=== PATIENT | male | born 1950 | race African-American/Black ===

== ENCOUNTER 2019-06-15 06:35 | Inpatient (IN) | payer MEDICARE, OTHER ==
[~2019-06-15] VITALS: Ht 170.2 cm; Wt 71.7 kg
[2019-06-15 07:15] LABS: BASOPHILS % 0.6 % (0.0-2.0); EOSINOPHILS % 0.5 % (0.0-5.0); HEMATOCRIT. 41.1 % (42.0-52.0); HEMOGLOBIN. 14.4 g/dL (14.0-18.0); LYMPHOCYTES % 22.2 % (20.0-50.0); MEAN CORPUSCULAR HEMOGLOBIN 28.5 pg (28.0-32.0); MEAN CORPUSCULAR VOLUME 81.4 fL (80.0-94.0); MEAN PLATELET VOLUME 11.4 fl (7.4-10.4); MONOCYTES % 11.9 % (2.0-8.0); NEUTROPHILS % 64.8 % (40.0-76.0); PLATELET 173 x1000/uL (130-400); RED BLOOD CELL COUNT 5.05 mill/uL (4.7-6.1); RED CELL DISTRIBUTION WIDTH 14.4 % (11.6-14.6)
[2019-06-15 07:22] LABS: CLARITY URINE CLEAR (CLEAR); COLOR URINE YELLOW (YELLOW); KETONES URINE NEGATIVE (NEGATIVE); LEUKOCYTE ESTERASE URINE NEGATIVE (NEGATIVE); NITRITE URINE NEGATIVE (NEGATIVE); OCCULT BLOOD URINE NEGATIVE (NEGATIVE); PH URINE 5.5 (4.5-8.0); PROTEIN URINE 1+ (NEGATIVE); SPECIFIC GRAVITY URINE 1.019 (1.005-1.030)
[2019-06-15 07:22] LABS: CHLORIDE 108 mEq/L (98-107)
[2019-06-15 07:26] LABS: ETHANOL BLOOD < 10 mg/dL
[2019-06-15 07:37] LABS: PROTHROMBIN TIME 11.1 sec (9.6-11.0)
[2019-06-15 07:39] LABS: *AMPHETAMINES SCREEN URINE NEGATIVE (NEGATIVE); *BARBITURATES SCREEN URINE NEGATIVE (NEGATIVE); *BENZODIAZEPINES SCREEN URINE NEGATIVE (NEGATIVE)
[2019-06-15 07:40] LABS: *COCAINE SCREEN URINE PRESUMTIVE POSITIVE (NEGATIVE); CANNABINOID URINE SCREEN NEGATIVE (NEGATIVE); METHADONE URINE SCREEN NEGATIVE (NEGATIVE); OPIATES URINE SCREEN NEGATIVE (NEGATIVE); PHENCYCLIDINE URINE SCREEN NEGATIVE (NEGATIVE)
[2019-06-15] MEDS ORDERED: CEFTRIAXONE 1 G PREMIX 50 ML IV ONE (08:45)
[2019-06-15] MEDS ORDERED: ASPIRIN 300MG SUPP PR ONE (08:45)
[2019-06-15] MEDS ORDERED: AZITHROMYCIN 500 MG in DEXT 5% WATER 250 ML IV ONE (08:45)
[2019-06-15 10:35] LABS: BG BASE EXCESS -2.1 mmol/L (-2.0-2.0); BG CARBOXYHEMOGLOBIN 1.2 % (0.5-1.5); BG DEOXYHEMOGLOBIN 3.1 % (0.0-5.0); BG FRACTION INSPIRED OXYGEN 28; BG HCO3 ACT 21.9 mmol/L (22.0-26.0); BG METHEMOGLOBIN 0.2 % (0.0-1.5); BG OXYGEN SATURATION 96.9 % (92.0-98.5); BG OXYHEMOGLOBIN 95.5 % (94.0-97.0); BG PCO2 35.3 mmHg (35.0-45.0); BG PO2 95.7 mmHg (75.0-100.0); BG SAMPLE SITE RIGHT RADIAL; BG TOTAL HEMOGLOBIN 14.7 g/dL (12.0-18.0); BG VENT MODE NASAL CANNULA
[2019-06-15] MEDS ORDERED: LORAZEPAM 2MG/ML CPJ IV ONE (10:45)
[2019-06-15 11:20] VITALS: BP 166/107
[2019-06-15 11:25] VITALS: BP 166/107
[2019-06-15] MEDS ORDERED: GUAIFENESIN 200MG/10ML SUGAR FREE UDC PO PRN (12:00)
[2019-06-15] MEDS ORDERED: KETOROLAC 30MG/ML VIAL IV PRN (12:00)
[2019-06-15] MEDS ORDERED: NITROGLYCERIN 0.4MG TABLET SL SL PRN (12:00)
[2019-06-15] MEDS ORDERED: IPRATROPIUM/ALBUTEROL 0.5-3(2.5)MG/3ML NEB NEB PRN (12:00)
[2019-06-15] MEDS ORDERED: ACETAMINOPHEN 325MG TABLET PO PRN (12:00)
[2019-06-15] MEDS ORDERED: MAGNESIUM/ALUMINUM HYDROXIDE/SIMETHICONE 30ML UDC PO PRN (12:00)
[2019-06-15] MEDS ORDERED: ONDANSETRON HCL 4MG/2ML INJ IV PRN (12:00)
[2019-06-15] MEDS ORDERED: DOCUSATE SODIUM 100MG CAPSULE PO PRN (12:00)
[2019-06-15] MEDS ORDERED: KETOROLAC 15MG/ML VIAL IV PRN (12:15)
[2019-06-15] MEDS ORDERED: KCL 20MEQ/100ML PREMIX 100 ML IV SCH (13:00)
[2019-06-15] MEDS ORDERED: AZITHROMYCIN 500 MG in DEXT 5% WATER 250 ML IV SCH (13:15)
[2019-06-15 13:30] VITALS: BP 159/109
[2019-06-15] MEDS: ENOXAPARIN 40MG/0.4ML SYR SUBCUT SCH (15:50)
[2019-06-15 16:00] VITALS: BP 179/122
[2019-06-15 16:09] LABS: CREATINE KINASE MB FRACTION 2.6 ng/mL (0.5-3.6)
[2019-06-15] MEDS: HYDRALAZINE 20MG/ML VIAL IV PRN (17:44)
[2019-06-15 20:21] VITALS: BP 169/108
[2019-06-15] MEDS: FAMOTIDINE 20MG TABLET PO SCH (21:00)
[2019-06-15 23:42] LABS: CREATINE KINASE MB FRACTION 1.8 ng/mL (0.5-3.6)
[2019-06-16 00:23] VITALS: BP 160/101
[2019-06-16 01:00] VITALS: BP 194/129
[2019-06-16] MEDS: HYDRALAZINE 20MG/ML VIAL IV PRN (01:56)
[2019-06-16 04:00] VITALS: BP 179/116
[2019-06-16 07:17] LABS: BASOPHILS % 0.6 % (0.0-2.0); EOSINOPHILS % 0.1 % (0.0-5.0); MEAN CORPUSCULAR HEMOGLOBIN 28.1 pg (28.0-32.0); MEAN CORPUSCULAR VOLUME 80.5 fL (80.0-94.0); MONOCYTES % 11.1 % (2.0-8.0); NEUTROPHILS % 63.2 % (40.0-76.0); RED BLOOD CELL COUNT 5.34 mill/uL (4.7-6.1); RED CELL DISTRIBUTION WIDTH 15.1 % (11.6-14.6)
[2019-06-16 07:50] LABS: CHLORIDE 109 mEq/L (98-107)
[2019-06-16 08:00] VITALS: BP 184/111
[2019-06-16 08:01] LABS: PHOSPHORUS 3.8 mg/dL (2.5-4.9)
[2019-06-16] MEDS ORDERED: ASPIRIN 325MG EC TABLET PO SCH (09:00)
[2019-06-16] MEDS: AZITHROMYCIN 500 MG TABLET PO SCH (09:00)
[2019-06-16] MEDS: FAMOTIDINE 20MG TABLET PO SCH (09:00)
[2019-06-16 11:41] LABS: PLATELET 192 x1000/uL (130-400)
[2019-06-16 12:00] VITALS: BP 185/114
[2019-06-16] MEDS: ENOXAPARIN 40MG/0.4ML SYR SUBCUT SCH (12:28)
[2019-06-16] MEDS: CLOPIDOGREL 75MG TABLET PO SCH (12:45)
[2019-06-16] MEDS: NITROGLYCERIN OINT 1GM/INCH UDPKT TD SCH (14:00)
[2019-06-16 16:00] VITALS: BP 186/116
[2019-06-16] MEDS: CEFTRIAXONE 1 G PREMIX 50 ML IV SCH (16:57)
[2019-06-17] VITALS: BP 168/106
[2019-06-17] MEDS: CLONIDINE 0.1MG TABLET PO PRN ×2 (04:58→21:22)
[2019-06-17] MEDS: NITROGLYCERIN OINT 1GM/INCH UDPKT TD SCH ×4 (07:06→21:23)
[2019-06-17 07:47] VITALS: BP 180/131
[2019-06-17] MEDS: CEFTRIAXONE 1 G PREMIX 50 ML IV SCH ×2 (09:00→14:15)
[2019-06-17 09:44] VITALS: BP 178/112
[2019-06-17] MEDS: CLOPIDOGREL 75MG TABLET PO SCH (09:46)
[2019-06-17] MEDS: AMLODIPINE 10MG TABLET NG SCH (09:46)
[2019-06-17] MEDS: FAMOTIDINE 20MG TABLET PO SCH ×2 (09:48→21:22)
[2019-06-17] MEDS: AZITHROMYCIN 500 MG TABLET PO SCH (09:53)
[2019-06-17 11:48] VITALS: BP 153/109
[2019-06-17] MEDS: ENOXAPARIN 40MG/0.4ML SYR SUBCUT SCH (13:45)
[2019-06-17 15:43] VITALS: BP 160/106
[2019-06-17 20:00] VITALS: BP 163/117
[2019-06-18] VITALS: BP 128/82
[2019-06-18 08:14] VITALS: BP 167/125
[2019-06-18] MEDS: FAMOTIDINE 20MG TABLET PO SCH ×2 (09:27→22:20)
[2019-06-18] MEDS: LISINOPRIL 20MG TABLET PO SCH ×2 (09:28→22:19)
[2019-06-18] MEDS: AZITHROMYCIN 500 MG TABLET PO SCH (09:28)
[2019-06-18] MEDS: AMLODIPINE 10MG TABLET NG SCH (09:28)
[2019-06-18] MEDS: CLOPIDOGREL 75MG TABLET PO SCH (09:28)
[2019-06-18] MEDS: CEFTRIAXONE 1 G PREMIX 50 ML IV SCH (09:29)
[2019-06-18] MEDS: ENOXAPARIN 40MG/0.4ML SYR SUBCUT SCH (12:00)
[2019-06-18 12:06] VITALS: BP 163/116
[2019-06-18] MEDS: NITROGLYCERIN OINT 1GM/INCH UDPKT TD SCH ×2 (14:00→22:20)
[2019-06-18 16:00] VITALS: BP 142/71
[2019-06-18 16:07] VITALS: BP 145/95
[2019-06-18 20:00] VITALS: BP 166/103
[2019-06-18] MEDS: HYDRALAZINE HCL 50MG TABLET PO SCH (22:19)
[2019-06-19] VITALS: BP 160/101
[2019-06-19 04:00] VITALS: BP 167/103
[2019-06-19] MEDS: CLONIDINE 0.1MG TABLET PO PRN ×2 (06:21→15:53)
[2019-06-19] MEDS: HYDRALAZINE HCL 50MG TABLET PO SCH ×3 (06:22→22:21)
[2019-06-19] MEDS: NITROGLYCERIN OINT 1GM/INCH UDPKT TD SCH ×3 (06:22→22:21)
[2019-06-19 08:00] VITALS: BP 154/87
[2019-06-19] MEDS: LISINOPRIL 20MG TABLET PO SCH ×2 (11:01→22:21)
[2019-06-19] MEDS: CLOPIDOGREL 75MG TABLET PO SCH (11:01)
[2019-06-19] MEDS: FAMOTIDINE 20MG TABLET PO SCH ×2 (11:02→22:21)
[2019-06-19] MEDS: ENOXAPARIN 40MG/0.4ML SYR SUBCUT SCH (11:02)
[2019-06-19] MEDS: AMLODIPINE 10MG TABLET NG SCH (11:02)
[2019-06-19] MEDS: CEFTRIAXONE 1 G PREMIX 50 ML IV SCH (11:02)
[2019-06-19] MEDS: AZITHROMYCIN 500 MG TABLET PO SCH (11:02)
[2019-06-19 12:00] VITALS: BP 151/99
[2019-06-19 16:00] VITALS: BP 120/80
[2019-06-19 20:00] VITALS: BP 167/104
[2019-06-20] VITALS: BP 148/97
[2019-06-20 04:00] VITALS: BP 148/97
[2019-06-20] MEDS: NITROGLYCERIN OINT 1GM/INCH UDPKT TD SCH ×3 (05:37→22:32)
[2019-06-20] MEDS: HYDRALAZINE HCL 50MG TABLET PO SCH ×3 (05:37→22:32)
[2019-06-20 08:00] VITALS: BP 137/88
[2019-06-20] MEDS: AMLODIPINE 10MG TABLET NG SCH (10:15)
[2019-06-20] MEDS: LISINOPRIL 20MG TABLET PO SCH ×2 (10:15→22:31)
[2019-06-20] MEDS: FAMOTIDINE 20MG TABLET PO SCH ×2 (10:15→21:00)
[2019-06-20 12:00] VITALS: BP 130/85
[2019-06-20 16:00] VITALS: BP 149/89
[2019-06-20 20:00] VITALS: BP 130/81
[2019-06-20] MEDS: ACETAMINOPHEN 325MG TABLET PO PRN (22:32)
[2019-06-21] VITALS: BP 139/81
[2019-06-21 04:00] VITALS: BP 159/100
[2019-06-21 06:22] LABS: PROTHROMBIN TIME 11.1 sec (9.6-11.0)
[2019-06-21] MEDS: NITROGLYCERIN OINT 1GM/INCH UDPKT TD SCH ×3 (06:43→22:37)
[2019-06-21] MEDS: HYDRALAZINE HCL 50MG TABLET PO SCH ×3 (06:43→22:38)
[2019-06-21 08:00] VITALS: BP 150/94
[2019-06-21] MEDS: LISINOPRIL 20MG TABLET PO SCH ×3 (08:32→22:38)
[2019-06-21] MEDS: AMLODIPINE 10MG TABLET NG SCH ×2 (08:32→08:58)
[2019-06-21] MEDS: FAMOTIDINE 20MG TABLET PO SCH ×2 (08:32→22:38)
[2019-06-21] MEDS ORDERED: CEFAZOLIN 1000MG PREMIX 50 ML IV SCH (09:00)
[2019-06-21] MEDS ORDERED: FENTANYL CITRATE/PF 50MCG/ML 2ML VIAL ONE (11:27)
[2019-06-21] MEDS ORDERED: FENTANYL CITRATE/PF 50MCG/ML 2ML VIAL IV PRN (11:27)
[2019-06-21] MEDS ORDERED: MIDAZOLAM HCL 5 MG/5 ML VIAL IV PRN (11:27)
[2019-06-21] MEDS ORDERED: MIDAZOLAM HCL 5 MG/5 ML VIAL ONE (11:27)
[2019-06-21 13:00] VITALS: BP 144/65
[2019-06-21] MEDS: FOLIC ACID 1MG TABLET PO SCH (14:06)
[2019-06-21] MEDS: THIAMINE HCL 100MG TABLET PO SCH (14:07)
[2019-06-21 16:00] VITALS: BP 142/85
[2019-06-21 20:00] VITALS: BP 120/76
[2019-06-21] MEDS: ACETAMINOPHEN 325MG TABLET PO PRN (22:37)
[2019-06-22] VITALS: BP 138/77
[2019-06-22 04:00] VITALS: BP 163/100
[2019-06-22] MEDS: HYDRALAZINE HCL 50MG TABLET PO SCH ×3 (05:14→20:20)
[2019-06-22] MEDS: NITROGLYCERIN OINT 1GM/INCH UDPKT TD SCH ×3 (05:15→20:21)
[2019-06-22] MEDS: ACETAMINOPHEN 325MG TABLET PO PRN (05:15)
[2019-06-22 09:33] LABS: BASOPHILS % 0.4 % (0.0-2.0); EOSINOPHILS % 0.3 % (0.0-5.0); HEMATOCRIT. 40.2 % (42.0-52.0); HEMOGLOBIN. 13.7 g/dL (14.0-18.0); LYMPHOCYTES % 13.3 % (20.0-50.0); MEAN CORPUSCULAR HEMOGLOBIN 27.8 pg (28.0-32.0); MEAN CORPUSCULAR VOLUME 81.5 fL (80.0-94.0); MEAN PLATELET VOLUME 10.9 fl (7.4-10.4); MONOCYTES % 10.3 % (2.0-8.0); NEUTROPHILS % 75.7 % (40.0-76.0); PLATELET 181 x1000/uL (130-400); RED BLOOD CELL COUNT 4.93 mill/uL (4.7-6.1)
[2019-06-22] MEDS: FAMOTIDINE 20MG TABLET PO SCH ×2 (09:33→20:20)
[2019-06-22] MEDS: THIAMINE HCL 100MG TABLET PO SCH (09:34)
[2019-06-22] MEDS: LISINOPRIL 20MG TABLET PO SCH ×2 (09:34→20:21)
[2019-06-22] MEDS: AMLODIPINE 10MG TABLET NG SCH (09:38)
[2019-06-22] MEDS: FOLIC ACID 1MG TABLET PO SCH (09:38)
[2019-06-22 09:49] LABS: CHLORIDE 116 mEq/L (98-107)
[2019-06-22] MEDS: LABETALOL HCL 200MG TABLET PO SCH ×2 (10:06→20:21)
[2019-06-22 12:14] VITALS: BP 154/97
[2019-06-22] MEDS: HYDRALAZINE 20MG/ML VIAL IV PRN (13:09)
[2019-06-22 16:05] VITALS: BP 103/77
[2019-06-22 20:00] VITALS: BP 158/90
[2019-06-23] VITALS (7 sets, daily range): BP systolic 144–155; BP diastolic 81–98
[2019-06-23] MEDS: NITROGLYCERIN OINT 1GM/INCH UDPKT TD SCH ×3 (05:15→21:14)
[2019-06-23] MEDS: HYDRALAZINE HCL 50MG TABLET PO SCH ×3 (05:15→21:13)
[2019-06-23] MEDS: LABETALOL HCL 200MG TABLET PO SCH ×2 (09:48→21:14)
[2019-06-23] MEDS: LISINOPRIL 20MG TABLET PO SCH ×2 (09:49→21:12)
[2019-06-23] MEDS: FOLIC ACID 1MG TABLET PO SCH (09:49)
[2019-06-23] MEDS: AMLODIPINE 10MG TABLET NG SCH (09:49)
[2019-06-23] MEDS: FAMOTIDINE 20MG TABLET PO SCH ×2 (09:49→21:13)
[2019-06-23] MEDS: THIAMINE HCL 100MG TABLET PO SCH (09:49)
[2019-06-23] MEDS ORDERED: CARVEDILOL 6.25 MG TABLET GT SCH (11:30)
[2019-06-23] MEDS: CARVEDILOL 6.25 MG TABLET GT SCH (21:13)
[2019-06-24] VITALS: BP 143/80
[2019-06-24 04:00] VITALS: BP 140/70
[2019-06-24 05:48] LABS: BASOPHILS % 0.7 % (0.0-2.0); EOSINOPHILS % 2.1 % (0.0-5.0); HEMATOCRIT. 39.6 % (42.0-52.0); HEMOGLOBIN. 13.3 g/dL (14.0-18.0); LYMPHOCYTES % 24.6 % (20.0-50.0); MEAN CORPUSCULAR HEMOGLOBIN 27.7 pg (28.0-32.0); MEAN CORPUSCULAR VOLUME 82.7 fL (80.0-94.0); MONOCYTES % 13.4 % (2.0-8.0); NEUTROPHILS % 59.2 % (40.0-76.0); RED BLOOD CELL COUNT 4.79 mill/uL (4.7-6.1); RED CELL DISTRIBUTION WIDTH 14.8 % (11.6-14.6)
[2019-06-24] MEDS: NITROGLYCERIN OINT 1GM/INCH UDPKT TD SCH ×2 (05:52→13:28)
[2019-06-24] MEDS: HYDRALAZINE HCL 50MG TABLET PO SCH ×3 (05:52→21:06)
[2019-06-24 05:59] LABS: CHLORIDE 116 mEq/L (98-107)
[2019-06-24 07:26] LABS: PLATELET 175 x1000/uL (130-400)
[2019-06-24 08:00] VITALS: BP 153/102
[2019-06-24] MEDS: FAMOTIDINE 20MG TABLET PO SCH ×2 (08:57→21:01)
[2019-06-24] MEDS: ASPIRIN 81MG EC TABLET PO SCH (08:57)
[2019-06-24] MEDS: FOLIC ACID 1MG TABLET PO SCH (08:57)
[2019-06-24] MEDS: THIAMINE HCL 100MG TABLET PO SCH (08:57)
[2019-06-24] MEDS: LABETALOL HCL 200MG TABLET PO SCH ×2 (09:00→21:07)
[2019-06-24] MEDS ORDERED: ENOXAPARIN 60MG/0.6ML SYR SUBCUT SCH (09:00)
[2019-06-24] MEDS: CARVEDILOL 6.25 MG TABLET GT SCH ×2 (09:01→21:07)
[2019-06-24] MEDS: LISINOPRIL 20MG TABLET PO SCH ×2 (09:01→21:06)
[2019-06-24] MEDS: AMLODIPINE 10MG TABLET NG SCH (09:01)
[2019-06-24 12:00] VITALS: BP 121/77
[2019-06-24 16:00] VITALS: BP 133/87
[2019-06-24 20:00] VITALS: BP 141/92
[2019-06-25] VITALS: BP 125/89
[2019-06-25] MEDS: NITROGLYCERIN OINT 1GM/INCH UDPKT TD SCH ×4 (00:43→21:01)
[2019-06-25 04:00] VITALS: BP 142/102
[2019-06-25] MEDS: HYDRALAZINE HCL 50MG TABLET PO SCH ×3 (05:15→21:01)
[2019-06-25 08:00] VITALS: BP 145/62
[2019-06-25] MEDS ORDERED: CLOPIDOGREL 75MG TABLET PO SCH (09:15)
[2019-06-25 10:01] LABS: BASOPHILS % 0.6 % (0.0-2.0); EOSINOPHILS % 2.6 % (0.0-5.0); HEMATOCRIT. 42.3 % (42.0-52.0); MEAN CORPUSCULAR HEMOGLOBIN 27.5 pg (28.0-32.0); MEAN CORPUSCULAR VOLUME 83.1 fL (80.0-94.0); MONOCYTES % 13.5 % (2.0-8.0); NEUTROPHILS % 55.3 % (40.0-76.0); RED BLOOD CELL COUNT 5.09 mill/uL (4.7-6.1); RED CELL DISTRIBUTION WIDTH 14.8 % (11.6-14.6)
[2019-06-25 10:10] LABS: CHLORIDE 117 mEq/L (98-107)
[2019-06-25] MEDS: FAMOTIDINE 20MG TABLET PO SCH ×2 (10:50→20:32)
[2019-06-25] MEDS: THIAMINE HCL 100MG TABLET PO SCH (10:50)
[2019-06-25] MEDS: LABETALOL HCL 200MG TABLET PO SCH ×2 (10:51→20:33)
[2019-06-25] MEDS: ASPIRIN 81MG EC TABLET PO SCH (10:52)
[2019-06-25] MEDS: LISINOPRIL 20MG TABLET PO SCH ×2 (10:53→20:33)
[2019-06-25] MEDS: CARVEDILOL 6.25 MG TABLET GT SCH ×2 (10:53→20:33)
[2019-06-25] MEDS: AMLODIPINE 10MG TABLET NG SCH (10:54)
[2019-06-25] MEDS: FOLIC ACID 1MG TABLET PO SCH (10:54)
[2019-06-25] MEDS: ENOXAPARIN 60MG/0.6ML SYR SUBCUT SCH ×2 (10:57→20:34)
[2019-06-25 11:27] LABS: MEAN PLATELET VOLUME 12.2 fl (7.4-10.4); PLATELET 183 x1000/uL (130-400)
[2019-06-25 12:00] VITALS: BP 118/86
[2019-06-25 16:00] VITALS: BP 133/98
[2019-06-25 20:43] VITALS: BP 131/77
[2019-06-26 00:44] VITALS: BP 140/73
[2019-06-26 04:00] VITALS: BP 123/76
[2019-06-26] MEDS: NITROGLYCERIN OINT 1GM/INCH UDPKT TD SCH ×3 (06:01→21:10)
[2019-06-26 06:02] LABS: HEMOGLOBIN. 13.7 g/dL (14.0-18.0); MEAN CORPUSCULAR VOLUME 81.8 fL (80.0-94.0); MEAN PLATELET VOLUME 12.2 fl (7.4-10.4); PLATELET 177 x1000/uL (130-400); RED CELL DISTRIBUTION WIDTH 14.9 % (11.6-14.6)
[2019-06-26] MEDS: HYDRALAZINE HCL 50MG TABLET PO SCH ×3 (06:02→21:09)
[2019-06-26 08:00] VITALS: BP_SYST 109; BP_DIAS 52; BP_DIAS 86
[2019-06-26 08:32] LABS: CHLORIDE 116 mEq/L (98-107)
[2019-06-26] MEDS: CARVEDILOL 6.25 MG TABLET GT SCH ×2 (09:00→21:11)
[2019-06-26] MEDS: LABETALOL HCL 200MG TABLET PO SCH ×2 (09:00→21:16)
[2019-06-26] MEDS: LISINOPRIL 20MG TABLET PO SCH ×2 (09:00→21:11)
[2019-06-26] MEDS: AMLODIPINE 10MG TABLET NG SCH (09:00)
[2019-06-26] MEDS: ASPIRIN 81MG EC TABLET PO SCH (09:15)
[2019-06-26] MEDS: FOLIC ACID 1MG TABLET PO SCH (09:15)
[2019-06-26] MEDS: THIAMINE HCL 100MG TABLET PO SCH (09:15)
[2019-06-26] MEDS: CLOPIDOGREL 75MG TABLET PO SCH (09:15)
[2019-06-26] MEDS: ENOXAPARIN 60MG/0.6ML SYR SUBCUT SCH ×2 (09:18→21:12)
[2019-06-26] MEDS: FAMOTIDINE 20MG TABLET PO SCH ×2 (09:20→21:11)
[2019-06-26 11:52] LABS: PLATELET ESTIMATE NORMAL
[2019-06-26 12:00] VITALS: BP 122/83
[2019-06-26 16:00] VITALS: BP 107/71
[2019-06-26 17:19] LABS: T4 FREE 1.15 ng/dL (0.76-1.46)
[2019-06-26 17:30] LABS: FOLIC ACID (FOLATE) SERUM >20 ng/mL ng/mL (>5.38)
[2019-06-26 17:41] LABS: VITAMIN B12 SERUM 838 pg/mL (211-911)
[2019-06-26 20:00] VITALS: BP 124/84
[2019-06-26] MEDS: ATORVASTATIN CALCIUM 20MG TABLET PO SCH (21:11)
[2019-06-27] VITALS: BP 100/62
[2019-06-27 04:00] VITALS: BP 117/86
[2019-06-27] MEDS: HYDRALAZINE HCL 50MG TABLET PO SCH ×3 (06:45→21:28)
[2019-06-27] MEDS: NITROGLYCERIN OINT 1GM/INCH UDPKT TD SCH ×2 (06:45→20:40)
[2019-06-27 07:49] LABS: CHLORIDE 117 mEq/L (98-107)
[2019-06-27 08:22] VITALS: BP 133/93
[2019-06-27 09:01] LABS: BASOPHILS % 0.5 % (0.0-2.0); EOSINOPHILS % 2.3 % (0.0-5.0); HEMATOCRIT. 41.3 % (42.0-52.0); HEMOGLOBIN. 13.7 g/dL (14.0-18.0); LYMPHOCYTES % 34.6 % (20.0-50.0); MEAN CORPUSCULAR HEMOGLOBIN 27.4 pg (28.0-32.0); MEAN CORPUSCULAR VOLUME 82.1 fL (80.0-94.0); MEAN PLATELET VOLUME 12.9 fl (7.4-10.4); NEUTROPHILS % 49.6 % (40.0-76.0); PLATELET 161 x1000/uL (130-400); RED BLOOD CELL COUNT 5.02 mill/uL (4.7-6.1); RED CELL DISTRIBUTION WIDTH 15.2 % (11.6-14.6)
[2019-06-27] MEDS: CARVEDILOL 6.25 MG TABLET GT SCH ×3 (09:16→20:45)
[2019-06-27] MEDS: FAMOTIDINE 20MG TABLET PO SCH ×2 (09:16→20:39)
[2019-06-27] MEDS: CLOPIDOGREL 75MG TABLET PO SCH (09:16)
[2019-06-27] MEDS: ENOXAPARIN 60MG/0.6ML SYR SUBCUT SCH ×2 (09:16→20:40)
[2019-06-27] MEDS: LABETALOL HCL 200MG TABLET PO SCH ×2 (09:16→20:39)
[2019-06-27] MEDS: ASPIRIN 81MG EC TABLET PO SCH (09:16)
[2019-06-27] MEDS: FOLIC ACID 1MG TABLET PO SCH (09:16)
[2019-06-27] MEDS: THIAMINE HCL 100MG TABLET PO SCH (09:16)
[2019-06-27] MEDS: LISINOPRIL 20MG TABLET PO SCH ×3 (09:17→20:45)
[2019-06-27] MEDS: AMLODIPINE 10MG TABLET NG SCH (09:17)
[2019-06-27 12:04] VITALS: BP 121/83
[2019-06-27 15:44] VITALS: BP 124/69
[2019-06-27 20:00] VITALS: BP 105/66
[2019-06-27] MEDS: ATORVASTATIN CALCIUM 20MG TABLET PO SCH (20:40)
[2019-06-28] VITALS: BP 124/78
[2019-06-28 04:00] VITALS: BP 131/91
[2019-06-28] MEDS: HYDRALAZINE HCL 50MG TABLET PO SCH ×3 (05:40→21:02)
[2019-06-28 08:00] VITALS: BP_SYST 133; BP_SYST 135; BP_DIAS 91
[2019-06-28] MEDS: NITROGLYCERIN OINT 1GM/INCH UDPKT TD SCH ×2 (09:25→20:40)
[2019-06-28] MEDS: ENOXAPARIN 60MG/0.6ML SYR SUBCUT SCH ×2 (09:25→20:40)
[2019-06-28] MEDS: AMLODIPINE 10MG TABLET NG SCH (09:26)
[2019-06-28] MEDS: ASPIRIN 81MG EC TABLET PO SCH (09:26)
[2019-06-28] MEDS: CARVEDILOL 6.25 MG TABLET GT SCH (09:26)
[2019-06-28] MEDS: THIAMINE HCL 100MG TABLET PO SCH (09:26)
[2019-06-28] MEDS: CLOPIDOGREL 75MG TABLET PO SCH (09:26)
[2019-06-28] MEDS: FOLIC ACID 1MG TABLET PO SCH (09:26)
[2019-06-28] MEDS: LABETALOL HCL 200MG TABLET PO SCH ×2 (09:32→20:39)
[2019-06-28] MEDS: LISINOPRIL 20MG TABLET PO SCH ×2 (09:33→20:40)
[2019-06-28] MEDS: PANTOPRAZOLE SODIUM 40 MG/VIAL IV SCH (09:40)
[2019-06-28 12:00] VITALS: BP 109/78
[2019-06-28 16:00] VITALS: BP 130/86
[2019-06-28 20:00] VITALS: BP 147/105
[2019-06-28] MEDS: ATORVASTATIN CALCIUM 20MG TABLET PO SCH (20:40)
[2019-06-28] MEDS: CARVEDILOL 12.5MG TABLET GT SCH (20:40)
[2019-06-29] VITALS: BP 116/81
[2019-06-29 04:00] VITALS: BP 124/89
[2019-06-29] MEDS: HYDRALAZINE HCL 50MG TABLET PO SCH ×3 (06:43→21:08)
[2019-06-29 08:00] VITALS: BP 109/77
[2019-06-29] MEDS: PANTOPRAZOLE SODIUM 40 MG/VIAL IV SCH (08:46)
[2019-06-29] MEDS: ASPIRIN 81MG EC TABLET PO SCH (08:46)
[2019-06-29] MEDS: CLOPIDOGREL 75MG TABLET PO SCH (08:46)
[2019-06-29] MEDS: ENOXAPARIN 60MG/0.6ML SYR SUBCUT SCH ×2 (08:46→21:06)
[2019-06-29] MEDS: THIAMINE HCL 100MG TABLET PO SCH (08:46)
[2019-06-29] MEDS: AMLODIPINE 10MG TABLET NG SCH ×2 (08:47→08:52)
[2019-06-29] MEDS: CARVEDILOL 12.5MG TABLET GT SCH ×2 (08:47→21:07)
[2019-06-29] MEDS: FOLIC ACID 1MG TABLET PO SCH (08:47)
[2019-06-29] MEDS: LABETALOL HCL 200MG TABLET PO SCH ×2 (08:47→21:07)
[2019-06-29] MEDS: LISINOPRIL 20MG TABLET PO SCH ×2 (08:48→21:08)
[2019-06-29] MEDS: NITROGLYCERIN OINT 1GM/INCH UDPKT TD SCH ×2 (08:48→21:08)
[2019-06-29 11:54] VITALS: BP 94/65
[2019-06-29 16:00] VITALS: BP 100/72
[2019-06-29 20:00] VITALS: BP 120/77
[2019-06-29] MEDS: ATORVASTATIN CALCIUM 20MG TABLET PO SCH (21:08)
[2019-06-30] VITALS: BP 106/73
[2019-06-30 04:00] VITALS: BP_SYST 108; BP_SYST 110; BP_DIAS 60; BP_DIAS 64
[2019-06-30] MEDS: HYDRALAZINE HCL 50MG TABLET PO SCH ×3 (06:00→22:00)
[2019-06-30 08:00] VITALS: BP 125/80
[2019-06-30 08:42] LABS: CHLORIDE 118 mEq/L (98-107)
[2019-06-30 08:45] LABS: BASOPHILS % 0.8 % (0.0-2.0); EOSINOPHILS % 1.9 % (0.0-5.0); HEMATOCRIT. 40.7 % (42.0-52.0); HEMOGLOBIN. 13.5 g/dL (14.0-18.0); LYMPHOCYTES % 33.3 % (20.0-50.0); MEAN CORPUSCULAR HEMOGLOBIN 27.4 pg (28.0-32.0); MEAN CORPUSCULAR VOLUME 82.7 fL (80.0-94.0); MONOCYTES % 12.7 % (2.0-8.0); NEUTROPHILS % 51.3 % (40.0-76.0); RED BLOOD CELL COUNT 4.92 mill/uL (4.7-6.1); RED CELL DISTRIBUTION WIDTH 15.1 % (11.6-14.6)
[2019-06-30] MEDS: PANTOPRAZOLE SODIUM 40 MG/VIAL IV SCH (09:04)
[2019-06-30] MEDS: FOLIC ACID 1MG TABLET PO SCH (09:05)
[2019-06-30] MEDS: AMLODIPINE 10MG TABLET NG SCH (09:05)
[2019-06-30] MEDS: ASPIRIN 81MG EC TABLET PO SCH (09:05)
[2019-06-30] MEDS: CLOPIDOGREL 75MG TABLET PO SCH (09:05)
[2019-06-30] MEDS: LABETALOL HCL 200MG TABLET PO SCH ×2 (09:06→21:40)
[2019-06-30] MEDS: THIAMINE HCL 100MG TABLET PO SCH (09:06)
[2019-06-30] MEDS: LISINOPRIL 20MG TABLET PO SCH ×2 (09:07→21:25)
[2019-06-30] MEDS: CARVEDILOL 12.5MG TABLET GT SCH ×2 (09:08→21:26)
[2019-06-30] MEDS: ENOXAPARIN 60MG/0.6ML SYR SUBCUT SCH ×2 (09:09→21:27)
[2019-06-30] MEDS: NITROGLYCERIN OINT 1GM/INCH UDPKT TD SCH ×2 (09:09→21:27)
[2019-06-30 10:07] LABS: PLATELET ESTIMATE NORMAL
[2019-06-30 12:00] VITALS: BP 121/88
[2019-06-30 16:00] VITALS: BP 125/93
[2019-06-30 20:00] VITALS: BP 134/91
[2019-06-30] MEDS: ATORVASTATIN CALCIUM 20MG TABLET PO SCH (21:25)
[2019-07-01] VITALS: BP 102/73
[2019-07-01 04:00] VITALS: BP 110/69
[2019-07-01] MEDS: HYDRALAZINE HCL 50MG TABLET PO SCH ×3 (06:30→22:52)
[2019-07-01 08:00] VITALS: BP 122/80
[2019-07-01] MEDS: NITROGLYCERIN OINT 1GM/INCH UDPKT TD SCH ×2 (08:42→22:52)
[2019-07-01] MEDS: PANTOPRAZOLE SODIUM 40 MG/VIAL IV SCH (08:42)
[2019-07-01] MEDS: ENOXAPARIN 60MG/0.6ML SYR SUBCUT SCH ×2 (08:42→22:51)
[2019-07-01] MEDS: CLOPIDOGREL 75MG TABLET PO SCH (08:43)
[2019-07-01] MEDS: ASPIRIN 81MG EC TABLET PO SCH (08:43)
[2019-07-01] MEDS: FOLIC ACID 1MG TABLET PO SCH (08:43)
[2019-07-01] MEDS: AMLODIPINE 10MG TABLET NG SCH (08:43)
[2019-07-01] MEDS: LISINOPRIL 20MG TABLET PO SCH ×2 (08:43→22:51)
[2019-07-01] MEDS: THIAMINE HCL 100MG TABLET PO SCH (08:43)
[2019-07-01] MEDS: CARVEDILOL 12.5MG TABLET GT SCH ×2 (08:43→22:50)
[2019-07-01] MEDS: ACETAMINOPHEN 325MG TABLET PO PRN (08:44)
[2019-07-01] MEDS: LABETALOL HCL 200MG TABLET PO SCH ×2 (08:49→22:51)
[2019-07-01 12:00] VITALS: BP 93/58
[2019-07-01 16:00] VITALS: BP 121/87
[2019-07-01 20:00] VITALS: BP 117/81
[2019-07-01] MEDS: ATORVASTATIN CALCIUM 20MG TABLET PO SCH (22:50)
[2019-07-02] VITALS: BP 120/83
[2019-07-02 04:00] VITALS: BP 131/103
[2019-07-02] MEDS: HYDRALAZINE HCL 50MG TABLET PO SCH ×3 (07:13→21:23)
[2019-07-02 08:00] VITALS: BP 126/95
[2019-07-02] MEDS: NITROGLYCERIN OINT 1GM/INCH UDPKT TD SCH (08:54)
[2019-07-02] MEDS: PANTOPRAZOLE SODIUM 40 MG/VIAL IV SCH (08:55)
[2019-07-02] MEDS: ASPIRIN 81MG EC TABLET PO SCH (08:55)
[2019-07-02] MEDS: CLOPIDOGREL 75MG TABLET PO SCH (08:55)
[2019-07-02] MEDS: ENOXAPARIN 60MG/0.6ML SYR SUBCUT SCH (08:55)
[2019-07-02] MEDS: AMLODIPINE 10MG TABLET NG SCH (08:55)
[2019-07-02] MEDS: THIAMINE HCL 100MG TABLET PO SCH (08:55)
[2019-07-02] MEDS: FOLIC ACID 1MG TABLET PO SCH (08:55)
[2019-07-02] MEDS: LABETALOL HCL 200MG TABLET PO SCH ×2 (08:55→21:22)
[2019-07-02] MEDS: CARVEDILOL 12.5MG TABLET GT SCH ×2 (08:58→21:22)
[2019-07-02] MEDS: LISINOPRIL 20MG TABLET PO SCH ×2 (09:33→21:22)
[2019-07-02 12:00] VITALS: BP 118/88
[2019-07-02 16:00] VITALS: BP 123/89
[2019-07-02 20:00] VITALS: BP 134/92
[2019-07-02] MEDS: ATORVASTATIN CALCIUM 20MG TABLET PO SCH (21:22)
[2019-07-03] VITALS: BP 120/86
[2019-07-03 04:00] VITALS: BP 134/100
[2019-07-03] MEDS: HYDRALAZINE HCL 50MG TABLET PO SCH ×3 (06:45→20:38)
[2019-07-03 07:11] LABS: BASOPHILS % 0.4 % (0.0-2.0); EOSINOPHILS % 1.5 % (0.0-5.0); HEMATOCRIT. 40.8 % (42.0-52.0); HEMOGLOBIN. 13.9 g/dL (14.0-18.0); LYMPHOCYTES % 27.4 % (20.0-50.0); MEAN CORPUSCULAR HEMOGLOBIN 27.5 pg (28.0-32.0); MEAN CORPUSCULAR VOLUME 80.5 fL (80.0-94.0); MONOCYTES % 8.4 % (2.0-8.0); NEUTROPHILS % 62.3 % (40.0-76.0); RED BLOOD CELL COUNT 5.07 mill/uL (4.7-6.1); RED CELL DISTRIBUTION WIDTH 15.1 % (11.6-14.6)
[2019-07-03 07:50] LABS: CHLORIDE 116 mEq/L (98-107)
[2019-07-03 08:00] VITALS: BP 135/90
[2019-07-03 08:10] LABS: PLATELET ESTIMATE NORMAL
[2019-07-03 08:14] LABS: MEAN PLATELET VOLUME 13.8 fl (7.4-10.4); PLATELET 134 x1000/uL (130-400)
[2019-07-03] MEDS: ASPIRIN 81MG EC TABLET PO SCH (09:12)
[2019-07-03] MEDS: CLOPIDOGREL 75MG TABLET PO SCH (09:12)
[2019-07-03] MEDS: CARVEDILOL 12.5MG TABLET GT SCH ×2 (09:12→20:39)
[2019-07-03] MEDS: AMLODIPINE 10MG TABLET NG SCH (09:12)
[2019-07-03] MEDS: THIAMINE HCL 100MG TABLET PO SCH (09:12)
[2019-07-03] MEDS: ENOXAPARIN 40MG/0.4ML SYR SUBCUT SCH (09:12)
[2019-07-03] MEDS: PANTOPRAZOLE SODIUM 40 MG/VIAL IV SCH (09:12)
[2019-07-03] MEDS: FOLIC ACID 1MG TABLET PO SCH (09:12)
[2019-07-03] MEDS: LABETALOL HCL 200MG TABLET PO SCH ×2 (09:13→20:38)
[2019-07-03] MEDS: LISINOPRIL 20MG TABLET PO SCH ×2 (09:13→20:38)
[2019-07-03 12:00] VITALS: BP 114/85
[2019-07-03] MEDS: FUROSEMIDE 40MG TABLET GT SCH (13:13)
[2019-07-03] MEDS: POTASSIUM CHLORIDE 20MEQ/PACKET GT SCH (13:13)
[2019-07-03 16:00] VITALS: BP 116/70
[2019-07-03 20:00] VITALS: BP 110/84
[2019-07-03] MEDS: ATORVASTATIN CALCIUM 20MG TABLET PO SCH (20:38)
[2019-07-04] VITALS: BP 127/87
[2019-07-04 04:00] VITALS: BP 137/93
[2019-07-04 05:59] LABS: BASOPHILS % 0.7 % (0.0-2.0); EOSINOPHILS % 2.1 % (0.0-5.0); HEMATOCRIT. 41.9 % (42.0-52.0); HEMOGLOBIN. 14.3 g/dL (14.0-18.0); LYMPHOCYTES % 32.3 % (20.0-50.0); MEAN CORPUSCULAR HEMOGLOBIN 27.7 pg (28.0-32.0); MEAN CORPUSCULAR VOLUME 81.4 fL (80.0-94.0); NEUTROPHILS % 53.9 % (40.0-76.0); RED BLOOD CELL COUNT 5.15 mill/uL (4.7-6.1); RED CELL DISTRIBUTION WIDTH 15.5 % (11.6-14.6)
[2019-07-04 06:22] LABS: CHLORIDE 116 mEq/L (98-107)
[2019-07-04] MEDS: HYDRALAZINE HCL 50MG TABLET PO SCH ×3 (06:51→22:12)
[2019-07-04 08:00] VITALS: BP 104/62
[2019-07-04] MEDS: LABETALOL HCL 200MG TABLET PO SCH ×2 (09:00→20:53)
[2019-07-04] MEDS: LISINOPRIL 20MG TABLET PO SCH ×2 (09:00→22:12)
[2019-07-04] MEDS: CARVEDILOL 12.5MG TABLET GT SCH ×2 (09:00→20:54)
[2019-07-04] MEDS: AMLODIPINE 10MG TABLET NG SCH (09:00)
[2019-07-04] MEDS: PANTOPRAZOLE SODIUM 40 MG/VIAL IV SCH (09:26)
[2019-07-04] MEDS: ENOXAPARIN 40MG/0.4ML SYR SUBCUT SCH (09:27)
[2019-07-04] MEDS: THIAMINE HCL 100MG TABLET PO SCH (09:27)
[2019-07-04] MEDS: FUROSEMIDE 40MG TABLET GT SCH (09:27)
[2019-07-04] MEDS: ASPIRIN 81MG EC TABLET PO SCH (09:27)
[2019-07-04] MEDS: CLOPIDOGREL 75MG TABLET PO SCH (09:27)
[2019-07-04] MEDS: FOLIC ACID 1MG TABLET PO SCH (09:27)
[2019-07-04] MEDS: POTASSIUM CHLORIDE 20MEQ/PACKET GT SCH (09:27)
[2019-07-04 10:05] LABS: PLATELET 118 x1000/uL (130-400)
[2019-07-04] MEDS: ACETAMINOPHEN 325MG TABLET PO PRN ×2 (11:49→15:24)
[2019-07-04 12:00] VITALS: BP 119/80
[2019-07-04] MEDS ORDERED: HYDRALAZINE 10 MG in SODIUM CHLORIDE 0.9% 49.5 ML IV PRN (15:00)
[2019-07-04 16:00] VITALS: BP 114/64
[2019-07-04 20:00] VITALS: BP 114/80
[2019-07-04] MEDS: ATORVASTATIN CALCIUM 20MG TABLET PO SCH (20:53)
[2019-07-05] VITALS: BP 110/69
[2019-07-05 04:00] VITALS: BP 120/80
[2019-07-05] MEDS: HYDRALAZINE HCL 50MG TABLET PO SCH ×3 (05:43→22:00)
[2019-07-05 08:00] VITALS: BP 111/81
[2019-07-05] MEDS: PANTOPRAZOLE SODIUM 40 MG/VIAL IV SCH (09:18)
[2019-07-05] MEDS: ASPIRIN 81MG EC TABLET PO SCH (09:19)
[2019-07-05] MEDS: POTASSIUM CHLORIDE 20MEQ/PACKET GT SCH (09:19)
[2019-07-05] MEDS: THIAMINE HCL 100MG TABLET PO SCH (09:19)
[2019-07-05] MEDS: LABETALOL HCL 200MG TABLET PO SCH ×2 (09:19→21:50)
[2019-07-05] MEDS: FUROSEMIDE 40MG TABLET GT SCH (09:19)
[2019-07-05] MEDS: FOLIC ACID 1MG TABLET PO SCH (09:20)
[2019-07-05] MEDS: CARVEDILOL 12.5MG TABLET GT SCH ×2 (09:20→21:50)
[2019-07-05] MEDS: AMLODIPINE 10MG TABLET NG SCH (09:20)
[2019-07-05] MEDS: LISINOPRIL 20MG TABLET PO SCH ×2 (09:20→21:50)
[2019-07-05] MEDS: ENOXAPARIN 40MG/0.4ML SYR SUBCUT SCH (09:21)
[2019-07-05] MEDS: CLOPIDOGREL 75MG TABLET PO SCH (09:21)
[2019-07-05 12:00] VITALS: BP 88/55
[2019-07-05 16:00] VITALS: BP 99/70
[2019-07-05 20:00] VITALS: BP 129/92
[2019-07-05] MEDS: ATORVASTATIN CALCIUM 20MG TABLET PO SCH (21:50)
[2019-07-05] MEDS: ACETAMINOPHEN 325MG TABLET PO PRN (22:23)
[2019-07-06 04:00] VITALS: BP 122/84
[2019-07-06] MEDS: HYDRALAZINE HCL 50MG TABLET PO SCH ×3 (05:59→22:06)
[2019-07-06 08:00] VITALS: BP 108/85
[2019-07-06] MEDS: LISINOPRIL 20MG TABLET PO SCH ×2 (09:00→20:40)
[2019-07-06] MEDS: LABETALOL HCL 200MG TABLET PO SCH ×2 (09:00→20:39)
[2019-07-06] MEDS: CARVEDILOL 12.5MG TABLET GT SCH ×2 (09:00→20:40)
[2019-07-06] MEDS: AMLODIPINE 10MG TABLET NG SCH (09:00)
[2019-07-06] MEDS: CLOPIDOGREL 75MG TABLET PO SCH (09:52)
[2019-07-06] MEDS: FOLIC ACID 1MG TABLET PO SCH (09:52)
[2019-07-06] MEDS: ASPIRIN 81MG EC TABLET PO SCH (09:52)
[2019-07-06] MEDS: THIAMINE HCL 100MG TABLET PO SCH (09:53)
[2019-07-06] MEDS: FUROSEMIDE 40MG TABLET GT SCH (09:53)
[2019-07-06] MEDS: POTASSIUM CHLORIDE 20MEQ/PACKET GT SCH (09:53)
[2019-07-06] MEDS: ENOXAPARIN 40MG/0.4ML SYR SUBCUT SCH (09:54)
[2019-07-06] MEDS: PANTOPRAZOLE SODIUM 40 MG/VIAL IV SCH (09:54)
[2019-07-06 12:00] VITALS: BP 127/86
[2019-07-06 16:00] VITALS: BP 125/89
[2019-07-06 20:00] VITALS: BP 133/91
[2019-07-06] MEDS: ATORVASTATIN CALCIUM 20MG TABLET PO SCH (20:39)
[2019-07-07] VITALS: BP 104/64
[2019-07-07 04:00] VITALS: BP 114/73
[2019-07-07] MEDS: HYDRALAZINE HCL 50MG TABLET PO SCH ×3 (05:26→22:00)
[2019-07-07] MEDS: ACETAMINOPHEN 325MG TABLET PO PRN ×3 (06:37→20:27)
[2019-07-07 07:20] LABS: BASOPHILS % 0.5 % (0.0-2.0); EOSINOPHILS % 2.2 % (0.0-5.0); HEMATOCRIT. 40.8 % (42.0-52.0); HEMOGLOBIN. 13.8 g/dL (14.0-18.0); LYMPHOCYTES % 38.4 % (20.0-50.0); MEAN CORPUSCULAR HEMOGLOBIN 27.4 pg (28.0-32.0); MEAN CORPUSCULAR VOLUME 80.8 fL (80.0-94.0); MEAN PLATELET VOLUME 12.9 fl (7.4-10.4); MONOCYTES % 13.4 % (2.0-8.0); NEUTROPHILS % 45.5 % (40.0-76.0); PLATELET 123 x1000/uL (130-400); RED BLOOD CELL COUNT 5.05 mill/uL (4.7-6.1); RED CELL DISTRIBUTION WIDTH 15.3 % (11.6-14.6)
[2019-07-07 07:52] LABS: CHLORIDE 114 mEq/L (98-107)
[2019-07-07 08:00] VITALS: BP 97/66
[2019-07-07] MEDS: LISINOPRIL 20MG TABLET PO SCH ×2 (09:00→20:27)
[2019-07-07] MEDS: AMLODIPINE 10MG TABLET NG SCH (09:00)
[2019-07-07] MEDS: LABETALOL HCL 200MG TABLET PO SCH ×2 (09:00→20:26)
[2019-07-07] MEDS: CARVEDILOL 12.5MG TABLET GT SCH ×2 (09:00→20:26)
[2019-07-07] MEDS: POTASSIUM CHLORIDE 20MEQ/PACKET GT SCH (09:20)
[2019-07-07] MEDS: ENOXAPARIN 40MG/0.4ML SYR SUBCUT SCH (09:21)
[2019-07-07] MEDS: PANTOPRAZOLE SODIUM 40 MG/VIAL IV SCH (09:21)
[2019-07-07] MEDS: FUROSEMIDE 40MG TABLET GT SCH (09:22)
[2019-07-07] MEDS: THIAMINE HCL 100MG TABLET PO SCH (09:22)
[2019-07-07] MEDS: CLOPIDOGREL 75MG TABLET PO SCH (09:22)
[2019-07-07] MEDS: FOLIC ACID 1MG TABLET PO SCH (09:22)
[2019-07-07] MEDS: ASPIRIN 81MG EC TABLET PO SCH (09:22)
[2019-07-07 11:29] LABS: PLATELET ESTIMATE SLIGHTLY DECREASED
[2019-07-07 12:00] VITALS: BP 118/74
[2019-07-07 16:00] VITALS: BP 115/77
[2019-07-07 20:00] VITALS: BP 117/78
[2019-07-07] MEDS: ATORVASTATIN CALCIUM 20MG TABLET PO SCH (20:27)
[2019-07-08] VITALS: BP 121/76
[2019-07-08 04:00] VITALS: BP 118/84
[2019-07-08] MEDS: HYDRALAZINE HCL 50MG TABLET PO SCH ×3 (05:26→22:38)
[2019-07-08] MEDS: ACETAMINOPHEN 325MG TABLET PO PRN ×3 (05:28→16:42)
[2019-07-08 08:00] VITALS: BP 109/76
[2019-07-08] MEDS: AMLODIPINE 10MG TABLET NG SCH (09:00)
[2019-07-08] MEDS: CARVEDILOL 12.5MG TABLET GT SCH ×2 (09:00→22:09)
[2019-07-08] MEDS: LISINOPRIL 20MG TABLET PO SCH ×2 (09:00→22:09)
[2019-07-08] MEDS: LABETALOL HCL 200MG TABLET PO SCH ×2 (09:00→22:08)
[2019-07-08] MEDS: FUROSEMIDE 40MG TABLET GT SCH (09:30)
[2019-07-08] MEDS: POTASSIUM CHLORIDE 20MEQ/PACKET GT SCH (09:30)
[2019-07-08] MEDS: PANTOPRAZOLE SODIUM 40 MG/VIAL IV SCH (09:31)
[2019-07-08] MEDS: ASPIRIN 81MG EC TABLET PO SCH (09:32)
[2019-07-08] MEDS: FOLIC ACID 1MG TABLET PO SCH (09:33)
[2019-07-08] MEDS: CLOPIDOGREL 75MG TABLET PO SCH (09:33)
[2019-07-08] MEDS: THIAMINE HCL 100MG TABLET PO SCH (09:33)
[2019-07-08] MEDS: ENOXAPARIN 40MG/0.4ML SYR SUBCUT SCH (09:34)
[2019-07-08 11:43] VITALS: BP 108/75
[2019-07-08 16:00] VITALS: BP 116/78
[2019-07-08 20:00] VITALS: BP 117/79
[2019-07-08] MEDS: ATORVASTATIN CALCIUM 20MG TABLET PO SCH (22:09)
[2019-07-09] VITALS: BP 116/67
[2019-07-09 04:00] VITALS: BP 110/84
[2019-07-09] MEDS: HYDRALAZINE HCL 50MG TABLET PO SCH ×3 (06:01→21:18)
[2019-07-09] MEDS: ACETAMINOPHEN 325MG TABLET PO PRN (07:09)
[2019-07-09 08:00] VITALS: BP 117/84
[2019-07-09] MEDS: PANTOPRAZOLE SODIUM 40 MG/VIAL IV SCH (08:15)
[2019-07-09] MEDS: FUROSEMIDE 40MG TABLET GT SCH (08:15)
[2019-07-09] MEDS: CARVEDILOL 12.5MG TABLET GT SCH ×2 (08:15→21:00)
[2019-07-09] MEDS: POTASSIUM CHLORIDE 20MEQ/PACKET GT SCH (08:15)
[2019-07-09] MEDS: LABETALOL HCL 200MG TABLET PO SCH ×2 (08:16→21:00)
[2019-07-09] MEDS: ASPIRIN 81MG EC TABLET PO SCH (08:16)
[2019-07-09] MEDS: CLOPIDOGREL 75MG TABLET PO SCH (08:16)
[2019-07-09] MEDS: AMLODIPINE 10MG TABLET NG SCH (08:16)
[2019-07-09] MEDS: FOLIC ACID 1MG TABLET PO SCH (08:16)
[2019-07-09] MEDS: THIAMINE HCL 100MG TABLET PO SCH (08:18)
[2019-07-09] MEDS: LISINOPRIL 20MG TABLET PO SCH ×2 (08:18→21:00)
[2019-07-09] MEDS: ENOXAPARIN 40MG/0.4ML SYR SUBCUT SCH (08:18)
[2019-07-09 12:00] VITALS: BP 97/57
[2019-07-09 16:00] VITALS: BP 110/72
[2019-07-09 20:00] VITALS: BP 101/83
[2019-07-09] MEDS: ATORVASTATIN CALCIUM 20MG TABLET PO SCH (21:53)
[2019-07-10] VITALS (7 sets, daily range): BP systolic 107–125; BP diastolic 68–96
[2019-07-10] MEDS: HYDRALAZINE HCL 50MG TABLET PO SCH ×3 (05:28→21:14)
[2019-07-10] MEDS: ACETAMINOPHEN 325MG TABLET PO PRN ×3 (06:06→21:19)
[2019-07-10 07:07] LABS: 25-HYDROXY VITAMIN D3 14 ng/mL (.)
[2019-07-10] MEDS: ENOXAPARIN 40MG/0.4ML SYR SUBCUT SCH (09:00)
[2019-07-10] MEDS: CLOPIDOGREL 75MG TABLET PO SCH (09:30)
[2019-07-10] MEDS: CARVEDILOL 12.5MG TABLET GT SCH ×2 (09:30→21:14)
[2019-07-10] MEDS: FOLIC ACID 1MG TABLET PO SCH (09:32)
[2019-07-10] MEDS: LABETALOL HCL 200MG TABLET PO SCH ×2 (09:32→21:15)
[2019-07-10] MEDS: ASPIRIN 81MG EC TABLET PO SCH (09:32)
[2019-07-10] MEDS: THIAMINE HCL 100MG TABLET PO SCH (09:32)
[2019-07-10] MEDS: AMLODIPINE 10MG TABLET NG SCH (09:33)
[2019-07-10] MEDS: LISINOPRIL 20MG TABLET PO SCH ×2 (09:33→21:14)
[2019-07-10] MEDS: FUROSEMIDE 40MG TABLET GT SCH (09:33)
[2019-07-10] MEDS: POTASSIUM CHLORIDE 20MEQ/PACKET GT SCH (09:34)
[2019-07-10] MEDS: PANTOPRAZOLE SODIUM 40 MG/VIAL IV SCH (09:40)
[2019-07-10] MEDS: ERGOCALCIFEROL 50000UNITS CAPSULE PO SCH (18:04)
[2019-07-10] MEDS: ATORVASTATIN CALCIUM 20MG TABLET PO SCH (21:13)
[2019-07-11] VITALS: BP 119/69
[2019-07-11 04:00] VITALS: BP 111/66
[2019-07-11] MEDS: HYDRALAZINE HCL 50MG TABLET PO SCH ×3 (06:37→21:41)
[2019-07-11 06:47] LABS: BASOPHILS % 0.6 % (0.0-2.0); EOSINOPHILS % 2.2 % (0.0-5.0); HEMATOCRIT. 39.9 % (42.0-52.0); HEMOGLOBIN. 13.3 g/dL (14.0-18.0); LYMPHOCYTES % 39.5 % (20.0-50.0); MEAN CORPUSCULAR HEMOGLOBIN 26.9 pg (28.0-32.0); MEAN CORPUSCULAR VOLUME 80.4 fL (80.0-94.0); MONOCYTES % 14.6 % (2.0-8.0); NEUTROPHILS % 43.1 % (40.0-76.0); RED BLOOD CELL COUNT 4.97 mill/uL (4.7-6.1); RED CELL DISTRIBUTION WIDTH 15.4 % (11.6-14.6)
[2019-07-11 07:04] LABS: CHLORIDE 108 mEq/L (98-107)
[2019-07-11 07:15] LABS: PHOSPHORUS 3.9 mg/dL (2.5-4.9)
[2019-07-11 08:00] VITALS: BP 105/78
[2019-07-11] MEDS: PANTOPRAZOLE SODIUM 40 MG/VIAL IV SCH (09:58)
[2019-07-11] MEDS: POTASSIUM CHLORIDE 20MEQ/PACKET GT SCH (09:58)
[2019-07-11] MEDS: CLOPIDOGREL 75MG TABLET PO SCH (09:58)
[2019-07-11] MEDS: LABETALOL HCL 200MG TABLET PO SCH ×2 (09:59→21:40)
[2019-07-11] MEDS: AMLODIPINE 10MG TABLET NG SCH (10:00)
[2019-07-11] MEDS: CARVEDILOL 12.5MG TABLET GT SCH ×2 (10:00→21:00)
[2019-07-11] MEDS: THIAMINE HCL 100MG TABLET PO SCH (10:00)
[2019-07-11 10:01] LABS: PLATELET 122 x1000/uL (130-400)
[2019-07-11] MEDS: ASPIRIN 81MG EC TABLET PO SCH (10:01)
[2019-07-11] MEDS: FUROSEMIDE 40MG TABLET GT SCH (10:01)
[2019-07-11] MEDS: LISINOPRIL 20MG TABLET PO SCH ×2 (10:01→21:00)
[2019-07-11] MEDS: FOLIC ACID 1MG TABLET PO SCH (10:01)
[2019-07-11] MEDS: ENOXAPARIN 40MG/0.4ML SYR SUBCUT SCH (10:04)
[2019-07-11 12:00] VITALS: BP 104/71
[2019-07-11] MEDS: ACETAMINOPHEN 325MG TABLET PO PRN (12:49)
[2019-07-11 16:00] VITALS: BP 104/67
[2019-07-11 20:00] VITALS: BP 108/77
[2019-07-11] MEDS: ATORVASTATIN CALCIUM 20MG TABLET PO SCH (21:40)
[2019-07-12] VITALS: BP 110/70
[2019-07-12 04:00] VITALS: BP 129/80
[2019-07-12] MEDS: HYDRALAZINE HCL 50MG TABLET PO SCH ×3 (05:37→21:52)
[2019-07-12 08:00] VITALS: BP 110/74
[2019-07-12] MEDS: CARVEDILOL 12.5MG TABLET GT SCH ×2 (08:23→21:50)
[2019-07-12] MEDS: FOLIC ACID 1MG TABLET PO SCH (08:24)
[2019-07-12] MEDS: FUROSEMIDE 40MG TABLET GT SCH (08:24)
[2019-07-12] MEDS: THIAMINE HCL 100MG TABLET PO SCH (08:24)
[2019-07-12] MEDS: CLOPIDOGREL 75MG TABLET PO SCH (08:24)
[2019-07-12] MEDS: ASPIRIN 81MG EC TABLET PO SCH (08:24)
[2019-07-12] MEDS: LABETALOL HCL 200MG TABLET PO SCH ×2 (08:25→21:52)
[2019-07-12] MEDS: AMLODIPINE 10MG TABLET NG SCH ×2 (08:26→08:32)
[2019-07-12] MEDS: LISINOPRIL 20MG TABLET PO SCH ×2 (08:26→21:56)
[2019-07-12] MEDS: PANTOPRAZOLE SODIUM 40 MG/VIAL IV SCH (08:27)
[2019-07-12] MEDS: POTASSIUM CHLORIDE 20MEQ/PACKET GT SCH (08:27)
[2019-07-12] MEDS: ENOXAPARIN 40MG/0.4ML SYR SUBCUT SCH (08:29)
[2019-07-12 12:00] VITALS: BP 101/66
[2019-07-12 16:00] VITALS: BP 102/75
[2019-07-12 20:00] VITALS: BP 130/84
[2019-07-12] MEDS: ATORVASTATIN CALCIUM 20MG TABLET PO SCH (21:52)
[2019-07-12] MEDS: ACETAMINOPHEN 325MG TABLET PO PRN (23:54)
[2019-07-13] VITALS: BP 105/72
[2019-07-13 04:00] VITALS: BP 106/65
[2019-07-13] MEDS: HYDRALAZINE HCL 50MG TABLET PO SCH ×3 (06:00→21:19)
[2019-07-13 08:00] VITALS: BP 122/82
[2019-07-13] MEDS: FOLIC ACID 1MG TABLET PO SCH (09:00)
[2019-07-13] MEDS: PANTOPRAZOLE SODIUM 40 MG/VIAL IV SCH (10:26)
[2019-07-13] MEDS: ENOXAPARIN 40MG/0.4ML SYR SUBCUT SCH (10:27)
[2019-07-13] MEDS: FUROSEMIDE 40MG TABLET GT SCH (10:29)
[2019-07-13] MEDS: CARVEDILOL 12.5MG TABLET GT SCH ×2 (10:29→21:18)
[2019-07-13] MEDS: AMLODIPINE 10MG TABLET NG SCH (10:30)
[2019-07-13] MEDS: ASPIRIN 81MG EC TABLET PO SCH (10:31)
[2019-07-13] MEDS: CLOPIDOGREL 75MG TABLET PO SCH (10:31)
[2019-07-13] MEDS: LISINOPRIL 20MG TABLET PO SCH ×2 (10:32→21:19)
[2019-07-13] MEDS: LABETALOL HCL 200MG TABLET PO SCH ×2 (10:32→21:19)
[2019-07-13] MEDS: POTASSIUM CHLORIDE 20MEQ/PACKET GT SCH (10:32)
[2019-07-13] MEDS: ACETAMINOPHEN 325MG TABLET PO PRN (10:33)
[2019-07-13] MEDS: THIAMINE HCL 100MG TABLET PO SCH (10:33)
[2019-07-13 12:00] VITALS: BP 105/72
[2019-07-13 16:00] VITALS: BP 97/63
[2019-07-13 20:00] VITALS: BP 121/76
[2019-07-13] MEDS: ATORVASTATIN CALCIUM 20MG TABLET PO SCH (21:18)
[2019-07-14] VITALS (7 sets, daily range): BP systolic 99–119; BP diastolic 18–82
[2019-07-14] MEDS: HYDRALAZINE HCL 50MG TABLET PO SCH ×3 (05:32→21:48)
[2019-07-14] MEDS: PANTOPRAZOLE SODIUM 40 MG/VIAL IV SCH (09:13)
[2019-07-14] MEDS: THIAMINE HCL 100MG TABLET PO SCH (09:14)
[2019-07-14] MEDS: FOLIC ACID 1MG TABLET PO SCH (09:14)
[2019-07-14] MEDS: ASPIRIN 81MG EC TABLET PO SCH (09:14)
[2019-07-14] MEDS: ENOXAPARIN 40MG/0.4ML SYR SUBCUT SCH (09:14)
[2019-07-14] MEDS: CARVEDILOL 12.5MG TABLET GT SCH ×2 (09:15→21:00)
[2019-07-14] MEDS: CLOPIDOGREL 75MG TABLET PO SCH (09:15)
[2019-07-14] MEDS: AMLODIPINE 10MG TABLET NG SCH (09:16)
[2019-07-14] MEDS: LABETALOL HCL 200MG TABLET PO SCH ×2 (09:16→21:00)
[2019-07-14] MEDS: FUROSEMIDE 40MG TABLET GT SCH (09:16)
[2019-07-14] MEDS: POTASSIUM CHLORIDE 20MEQ/PACKET GT SCH (09:16)
[2019-07-14] MEDS: LISINOPRIL 20MG TABLET PO SCH ×2 (09:17→21:00)
[2019-07-14] MEDS: ACETAMINOPHEN 325MG TABLET PO PRN (16:48)
[2019-07-14] MEDS: ATORVASTATIN CALCIUM 20MG TABLET PO SCH (21:48)
[2019-07-15] VITALS: BP 109/73
[2019-07-15 04:00] VITALS: BP 118/70
[2019-07-15] MEDS: HYDRALAZINE HCL 50MG TABLET PO SCH ×3 (05:44→22:37)
[2019-07-15 06:46] LABS: CHLORIDE 107 mEq/L (98-107)
[2019-07-15 06:54] LABS: PHOSPHORUS 3.5 mg/dL (2.5-4.9)
[2019-07-15 07:34] LABS: HEMATOCRIT. 38.6 % (42.0-52.0); HEMOGLOBIN. 13.3 g/dL (14.0-18.0); MEAN CORPUSCULAR HEMOGLOBIN 27.3 pg (28.0-32.0); MEAN CORPUSCULAR VOLUME 79.4 fL (80.0-94.0); RED BLOOD CELL COUNT 4.86 mill/uL (4.7-6.1); RED CELL DISTRIBUTION WIDTH 15.5 % (11.6-14.6)
[2019-07-15 08:00] VITALS: BP 117/81
[2019-07-15] MEDS: LISINOPRIL 20MG TABLET PO SCH ×2 (08:36→20:46)
[2019-07-15] MEDS: LABETALOL HCL 200MG TABLET PO SCH ×2 (08:36→20:47)
[2019-07-15] MEDS: FOLIC ACID 1MG TABLET PO SCH (08:36)
[2019-07-15] MEDS: CLOPIDOGREL 75MG TABLET PO SCH (08:36)
[2019-07-15] MEDS: FUROSEMIDE 40MG TABLET GT SCH (08:36)
[2019-07-15] MEDS: ASPIRIN 81MG EC TABLET PO SCH (08:36)
[2019-07-15] MEDS: THIAMINE HCL 100MG TABLET PO SCH (08:36)
[2019-07-15] MEDS: POTASSIUM CHLORIDE 20MEQ/PACKET GT SCH (08:36)
[2019-07-15] MEDS: CARVEDILOL 12.5MG TABLET GT SCH ×2 (08:36→20:47)
[2019-07-15] MEDS: PANTOPRAZOLE SODIUM 40 MG/VIAL IV SCH (08:37)
[2019-07-15] MEDS: AMLODIPINE 10MG TABLET NG SCH (08:37)
[2019-07-15] MEDS: ENOXAPARIN 40MG/0.4ML SYR SUBCUT SCH (08:37)
[2019-07-15 12:00] VITALS: BP 99/69
[2019-07-15 13:52] LABS: MEAN PLATELET VOLUME 14.3 fl (7.4-10.4); PLATELET 109 x1000/uL (130-400); PLATELET ESTIMATE DECREASED
[2019-07-15] MEDS: GABAPENTIN 100MG CAPSULE PO SCH ×2 (14:00→20:46)
[2019-07-15 16:00] VITALS: BP 106/75
[2019-07-15 20:00] VITALS: BP 140/82
[2019-07-15] MEDS: ATORVASTATIN CALCIUM 20MG TABLET PO SCH (20:47)
[2019-07-16] VITALS: BP 103/70
[2019-07-16 04:00] VITALS: BP 120/88
[2019-07-16] MEDS: HYDRALAZINE HCL 50MG TABLET PO SCH ×3 (06:23→21:03)
[2019-07-16] MEDS: GABAPENTIN 100MG CAPSULE PO SCH ×3 (06:25→21:02)
[2019-07-16 08:00] VITALS: BP 111/58
[2019-07-16] MEDS: LISINOPRIL 20MG TABLET PO SCH (09:44)
[2019-07-16] MEDS: FOLIC ACID 1MG TABLET PO SCH (09:44)
[2019-07-16] MEDS: FUROSEMIDE 40MG TABLET GT SCH (09:44)
[2019-07-16] MEDS: THIAMINE HCL 100MG TABLET PO SCH (09:44)
[2019-07-16] MEDS: ASPIRIN 81MG EC TABLET PO SCH (09:44)
[2019-07-16] MEDS: CLOPIDOGREL 75MG TABLET PO SCH (09:45)
[2019-07-16] MEDS: PANTOPRAZOLE SODIUM 40 MG/VIAL IV SCH (09:45)
[2019-07-16] MEDS: POTASSIUM CHLORIDE 20MEQ/PACKET GT SCH (09:45)
[2019-07-16] MEDS: ENOXAPARIN 40MG/0.4ML SYR SUBCUT SCH (09:45)
[2019-07-16] MEDS: LABETALOL HCL 200MG TABLET PO SCH ×2 (09:45→21:00)
[2019-07-16] MEDS: CARVEDILOL 12.5MG TABLET GT SCH ×2 (09:45→21:00)
[2019-07-16 12:00] VITALS: BP 92/52
[2019-07-16] MEDS: BACLOFEN 10MG TABLET PO SCH ×2 (13:29→21:02)
[2019-07-16 16:00] VITALS: BP 104/74
[2019-07-16] MEDS: ACETAMINOPHEN 325MG TABLET PO PRN (17:46)
[2019-07-16 20:00] VITALS: BP 92/65
[2019-07-16] MEDS: ATORVASTATIN CALCIUM 20MG TABLET PO SCH (21:02)
[2019-07-17] VITALS: BP 114/59
[2019-07-17 04:00] VITALS: BP 111/76
[2019-07-17] MEDS: GABAPENTIN 100MG CAPSULE PO SCH ×3 (05:56→22:10)
[2019-07-17] MEDS: BACLOFEN 10MG TABLET PO SCH ×3 (05:56→22:10)
[2019-07-17 08:00] VITALS: BP 92/61
[2019-07-17] MEDS: CARVEDILOL 12.5MG TABLET GT SCH ×2 (08:53→22:10)
[2019-07-17] MEDS: LABETALOL HCL 200MG TABLET PO SCH ×2 (08:54→22:10)
[2019-07-17] MEDS: POTASSIUM CHLORIDE 20MEQ/PACKET GT SCH (08:55)
[2019-07-17] MEDS: THIAMINE HCL 100MG TABLET PO SCH (08:55)
[2019-07-17] MEDS: FOLIC ACID 1MG TABLET PO SCH (08:55)
[2019-07-17] MEDS: ASPIRIN 81MG EC TABLET PO SCH (08:55)
[2019-07-17] MEDS: CLOPIDOGREL 75MG TABLET PO SCH (08:55)
[2019-07-17] MEDS: FUROSEMIDE 40MG TABLET GT SCH (08:55)
[2019-07-17] MEDS: ENOXAPARIN 40MG/0.4ML SYR SUBCUT SCH (08:56)
[2019-07-17] MEDS: PANTOPRAZOLE SODIUM 40 MG/VIAL IV SCH (08:59)
[2019-07-17] MEDS: ERGOCALCIFEROL 50000UNITS CAPSULE PO SCH (10:33)
[2019-07-17 12:00] VITALS: BP 120/77
[2019-07-17 16:00] VITALS: BP 139/89
[2019-07-17 20:00] VITALS: BP 142/103
[2019-07-17] MEDS: ACETAMINOPHEN 325MG TABLET PO PRN (22:09)
[2019-07-17] MEDS: ATORVASTATIN CALCIUM 20MG TABLET PO SCH (22:10)
[2019-07-18] VITALS: BP 153/96
[2019-07-18 04:00] VITALS: BP 141/70
[2019-07-18] MEDS: ACETAMINOPHEN 325MG TABLET PO PRN (06:01)
[2019-07-18] MEDS: GABAPENTIN 100MG CAPSULE PO SCH ×3 (06:01→22:22)
[2019-07-18] MEDS: BACLOFEN 10MG TABLET PO SCH ×3 (06:01→22:21)
[2019-07-18 07:33] LABS: CHLORIDE 106 mEq/L (98-107)
[2019-07-18 07:41] LABS: PHOSPHORUS 4.1 mg/dL (2.5-4.9)
[2019-07-18 08:00] VITALS: BP 125/80
[2019-07-18 08:20] LABS: HEMATOCRIT. 38.6 % (42.0-52.0); HEMOGLOBIN. 13.4 g/dL (14.0-18.0); MEAN CORPUSCULAR HEMOGLOBIN 27.3 pg (28.0-32.0); MEAN CORPUSCULAR VOLUME 78.8 fL (80.0-94.0); RED CELL DISTRIBUTION WIDTH 15.6 % (11.6-14.6)
[2019-07-18] MEDS: POTASSIUM CHLORIDE 20MEQ/PACKET GT SCH (08:54)
[2019-07-18] MEDS: CARVEDILOL 12.5MG TABLET GT SCH ×2 (08:55→22:22)
[2019-07-18] MEDS: FUROSEMIDE 40MG TABLET GT SCH (08:55)
[2019-07-18] MEDS: LABETALOL HCL 200MG TABLET PO SCH ×2 (08:55→22:22)
[2019-07-18] MEDS: ASPIRIN 81MG EC TABLET PO SCH (08:56)
[2019-07-18] MEDS: FOLIC ACID 1MG TABLET PO SCH (08:56)
[2019-07-18] MEDS: CLOPIDOGREL 75MG TABLET PO SCH (08:56)
[2019-07-18] MEDS: THIAMINE HCL 100MG TABLET PO SCH (08:56)
[2019-07-18] MEDS: PANTOPRAZOLE SODIUM 40 MG/VIAL IV SCH (08:56)
[2019-07-18] MEDS: ENOXAPARIN 40MG/0.4ML SYR SUBCUT SCH (08:57)
[2019-07-18 12:00] VITALS: BP 125/84
[2019-07-18 13:50] LABS: MEAN PLATELET VOLUME 13.5 fl (7.4-10.4); PLATELET 103 x1000/uL (130-400); PLATELET ESTIMATE DECREASED
[2019-07-18 20:00] VITALS: BP 120/82
[2019-07-18] MEDS: NAPHAZOLINE HCL/PHENIR MAL OPHTH SOLN 15ML RIGHTEYE SCH (22:22)
[2019-07-18] MEDS: ATORVASTATIN CALCIUM 20MG TABLET PO SCH (22:26)
[2019-07-19] VITALS: BP 113/82
[2019-07-19 04:00] VITALS: BP 144/91
[2019-07-19] MEDS: BACLOFEN 10MG TABLET PO SCH ×3 (05:30→22:17)
[2019-07-19] MEDS: GABAPENTIN 100MG CAPSULE PO SCH ×3 (05:30→22:18)
[2019-07-19] MEDS: NAPHAZOLINE HCL/PHENIR MAL OPHTH SOLN 15ML RIGHTEYE SCH ×4 (05:31→22:16)
[2019-07-19 08:00] VITALS: BP 132/78
[2019-07-19] MEDS: CLOPIDOGREL 75MG TABLET PO SCH (09:41)
[2019-07-19] MEDS: LABETALOL HCL 200MG TABLET PO SCH ×2 (09:42→22:18)
[2019-07-19] MEDS: THIAMINE HCL 100MG TABLET PO SCH (09:42)
[2019-07-19] MEDS: ASPIRIN 81MG EC TABLET PO SCH (09:42)
[2019-07-19] MEDS: FOLIC ACID 1MG TABLET PO SCH (09:42)
[2019-07-19] MEDS: POTASSIUM CHLORIDE 20MEQ/PACKET GT SCH (09:42)
[2019-07-19] MEDS: CARVEDILOL 12.5MG TABLET GT SCH ×2 (09:42→22:16)
[2019-07-19] MEDS: FUROSEMIDE 40MG TABLET GT SCH (09:43)
[2019-07-19] MEDS: PANTOPRAZOLE SODIUM 40 MG/VIAL IV SCH (09:43)
[2019-07-19] MEDS: ENOXAPARIN 40MG/0.4ML SYR SUBCUT SCH (09:43)
[2019-07-19 12:00] VITALS: BP 104/69
[2019-07-19 16:00] VITALS: BP 128/91
[2019-07-19 20:00] VITALS: BP 112/77
[2019-07-19] MEDS: ATORVASTATIN CALCIUM 20MG TABLET PO SCH (22:16)
[2019-07-20] VITALS: BP 107/74
[2019-07-20] MEDS: NAPHAZOLINE HCL/PHENIR MAL OPHTH SOLN 15ML RIGHTEYE SCH ×3 (02:59→14:54)
[2019-07-20 04:00] VITALS: BP 128/87
[2019-07-20] MEDS: GABAPENTIN 100MG CAPSULE PO SCH ×3 (06:48→21:39)
[2019-07-20] MEDS: BACLOFEN 10MG TABLET PO SCH ×3 (06:48→21:39)
[2019-07-20 08:00] VITALS: BP 117/81
[2019-07-20] MEDS: FUROSEMIDE 40MG TABLET GT SCH (09:09)
[2019-07-20] MEDS: PANTOPRAZOLE SODIUM 40 MG/VIAL IV SCH (09:09)
[2019-07-20] MEDS: CLOPIDOGREL 75MG TABLET PO SCH (09:09)
[2019-07-20] MEDS: POTASSIUM CHLORIDE 20MEQ/PACKET GT SCH (09:09)
[2019-07-20] MEDS: LABETALOL HCL 200MG TABLET PO SCH (09:10)
[2019-07-20] MEDS: ENOXAPARIN 40MG/0.4ML SYR SUBCUT SCH (09:10)
[2019-07-20] MEDS: CARVEDILOL 12.5MG TABLET GT SCH ×2 (09:10→21:39)
[2019-07-20] MEDS: ASPIRIN 81MG EC TABLET PO SCH (09:10)
[2019-07-20 12:00] VITALS: BP 120/87
[2019-07-20 16:00] VITALS: BP 97/76
[2019-07-20 20:00] VITALS: BP 111/65
[2019-07-20] MEDS: ATORVASTATIN CALCIUM 20MG TABLET PO SCH (21:39)
[2019-07-21] VITALS (7 sets, daily range): BP systolic 99–136; BP diastolic 64–104
[2019-07-21] MEDS: NAPHAZOLINE HCL/PHENIR MAL OPHTH SOLN 15ML RIGHTEYE SCH ×4 (04:55→22:42)
[2019-07-21] MEDS: ACETAMINOPHEN 325MG TABLET PO PRN ×3 (05:05→22:43)
[2019-07-21] MEDS: GABAPENTIN 100MG CAPSULE PO SCH ×3 (05:05→22:43)
[2019-07-21] MEDS: BACLOFEN 10MG TABLET PO SCH ×3 (05:05→22:44)
[2019-07-21] MEDS: CARVEDILOL 12.5MG TABLET GT SCH ×3 (09:00→22:43)
[2019-07-21] MEDS: ENOXAPARIN 40MG/0.4ML SYR SUBCUT SCH (09:05)
[2019-07-21] MEDS: FUROSEMIDE 40MG TABLET GT SCH (09:06)
[2019-07-21] MEDS: ASPIRIN 81MG EC TABLET PO SCH (09:06)
[2019-07-21] MEDS: PANTOPRAZOLE SODIUM 40 MG/VIAL IV SCH (09:06)
[2019-07-21] MEDS: POTASSIUM CHLORIDE 20MEQ/PACKET GT SCH (09:06)
[2019-07-21] MEDS: CLOPIDOGREL 75MG TABLET PO SCH (09:06)
[2019-07-21] MEDS: ATORVASTATIN CALCIUM 20MG TABLET PO SCH (22:43)
[2019-07-22] VITALS: BP 127/88
[2019-07-22] MEDS: NAPHAZOLINE HCL/PHENIR MAL OPHTH SOLN 15ML RIGHTEYE SCH ×4 (02:16→21:52)
[2019-07-22 04:00] VITALS: BP 132/93
[2019-07-22] MEDS: ACETAMINOPHEN 325MG TABLET PO PRN (06:06)
[2019-07-22] MEDS: BACLOFEN 10MG TABLET PO SCH ×3 (06:06→21:55)
[2019-07-22] MEDS: GABAPENTIN 100MG CAPSULE PO SCH ×3 (06:06→21:55)
[2019-07-22 08:00] VITALS: BP 176/84
[2019-07-22] MEDS: PANTOPRAZOLE SODIUM 40 MG/VIAL IV SCH (08:43)
[2019-07-22] MEDS: POTASSIUM CHLORIDE 20MEQ/PACKET GT SCH (08:43)
[2019-07-22] MEDS: ENOXAPARIN 40MG/0.4ML SYR SUBCUT SCH (08:47)
[2019-07-22] MEDS: ASPIRIN 81MG EC TABLET PO SCH (08:47)
[2019-07-22] MEDS: FUROSEMIDE 40MG TABLET GT SCH (08:47)
[2019-07-22] MEDS: CLOPIDOGREL 75MG TABLET PO SCH (08:47)
[2019-07-22] MEDS ORDERED: AMLODIPINE 5MG TABLET PO SCH ×3 (10:00)
[2019-07-22] MEDS: AMLODIPINE 5MG TABLET PO SCH ×2 (10:14→21:54)
[2019-07-22 12:00] VITALS: BP 133/98
[2019-07-22 16:00] VITALS: BP 130/98
[2019-07-22 20:00] VITALS: BP 142/91
[2019-07-22] MEDS: ATORVASTATIN CALCIUM 20MG TABLET PO SCH (21:53)
[2019-07-23 00:25] VITALS: BP 130/93
[2019-07-23 04:00] VITALS: BP 147/98
[2019-07-23] MEDS: NAPHAZOLINE HCL/PHENIR MAL OPHTH SOLN 15ML RIGHTEYE SCH ×4 (04:30→20:27)
[2019-07-23] MEDS: BACLOFEN 10MG TABLET PO SCH (05:17)
[2019-07-23] MEDS: GABAPENTIN 100MG CAPSULE PO SCH (05:18)
[2019-07-23 08:00] VITALS: BP 123/93
[2019-07-23] MEDS: PANTOPRAZOLE SODIUM 40 MG/VIAL IV SCH (08:57)
[2019-07-23] MEDS: AMLODIPINE 5MG TABLET PO SCH ×2 (08:58→20:28)
[2019-07-23] MEDS: POTASSIUM CHLORIDE 20MEQ/PACKET GT SCH (08:59)
[2019-07-23] MEDS: CLOPIDOGREL 75MG TABLET PO SCH (08:59)
[2019-07-23] MEDS: FUROSEMIDE 40MG TABLET GT SCH (08:59)
[2019-07-23] MEDS: ENOXAPARIN 40MG/0.4ML SYR SUBCUT SCH (09:00)
[2019-07-23 12:00] VITALS: BP 120/88
[2019-07-23 16:00] VITALS: BP 131/96
[2019-07-23 20:00] VITALS: BP 137/91
[2019-07-23] MEDS: ATORVASTATIN CALCIUM 20MG TABLET PO SCH (20:27)
[2019-07-24] VITALS: BP 130/94
[2019-07-24] MEDS: ACETAMINOPHEN 325MG TABLET PO PRN ×3 (02:07→15:53)
[2019-07-24] MEDS: NAPHAZOLINE HCL/PHENIR MAL OPHTH SOLN 15ML RIGHTEYE SCH ×4 (02:35→20:34)
[2019-07-24 04:00] VITALS: BP 123/96
[2019-07-24 08:00] VITALS: BP 161/82
[2019-07-24] MEDS: ERGOCALCIFEROL 50000UNITS CAPSULE PO SCH (09:16)
[2019-07-24] MEDS: PANTOPRAZOLE SODIUM 40 MG/VIAL IV SCH (09:16)
[2019-07-24] MEDS: POTASSIUM CHLORIDE 20MEQ/PACKET GT SCH (09:16)
[2019-07-24] MEDS: CLOPIDOGREL 75MG TABLET PO SCH (09:17)
[2019-07-24] MEDS: AMLODIPINE 5MG TABLET PO SCH ×2 (09:17→21:12)
[2019-07-24] MEDS: FUROSEMIDE 40MG TABLET GT SCH (09:17)
[2019-07-24] MEDS: ENOXAPARIN 40MG/0.4ML SYR SUBCUT SCH (09:18)
[2019-07-24 12:00] VITALS: BP 122/78
[2019-07-24] MEDS: BACLOFEN 10MG TABLET PO SCH ×2 (15:52→21:11)
[2019-07-24 16:00] VITALS: BP 130/98
[2019-07-24 20:00] VITALS: BP 151/109
[2019-07-24] MEDS: ATORVASTATIN CALCIUM 20MG TABLET PO SCH (21:11)
[2019-07-25] VITALS (7 sets, daily range): BP systolic 111–153; BP diastolic 80–98
[2019-07-25] MEDS: ACETAMINOPHEN 325MG TABLET PO PRN ×2 (01:17→21:08)
[2019-07-25] MEDS: NAPHAZOLINE HCL/PHENIR MAL OPHTH SOLN 15ML RIGHTEYE SCH ×4 (01:40→21:14)
[2019-07-25] MEDS: BACLOFEN 10MG TABLET PO SCH (05:56)
[2019-07-25] MEDS: FUROSEMIDE 40MG TABLET GT SCH (08:49)
[2019-07-25] MEDS: PANTOPRAZOLE SODIUM 40 MG/VIAL IV SCH (08:50)
[2019-07-25] MEDS: ENOXAPARIN 40MG/0.4ML SYR SUBCUT SCH (08:50)
[2019-07-25] MEDS: AMLODIPINE 5MG TABLET PO SCH ×2 (08:50→21:07)
[2019-07-25] MEDS: POTASSIUM CHLORIDE 20MEQ/PACKET GT SCH (08:50)
[2019-07-26] VITALS: BP 146/92
[2019-07-26] MEDS: NAPHAZOLINE HCL/PHENIR MAL OPHTH SOLN 15ML RIGHTEYE SCH ×4 (03:16→21:04)
[2019-07-26 04:00] VITALS: BP 144/95
[2019-07-26 08:00] VITALS: BP 149/85
[2019-07-26] MEDS: FUROSEMIDE 40MG TABLET GT SCH (08:40)
[2019-07-26] MEDS: PANTOPRAZOLE SODIUM 40 MG/VIAL IV SCH (08:41)
[2019-07-26] MEDS: POTASSIUM CHLORIDE 20MEQ/PACKET GT SCH (08:41)
[2019-07-26] MEDS: AMLODIPINE 5MG TABLET PO SCH ×2 (08:41→21:03)
[2019-07-26] MEDS: ENOXAPARIN 40MG/0.4ML SYR SUBCUT SCH (08:42)
[2019-07-26] MEDS: ACETAMINOPHEN 325MG TABLET PO PRN ×2 (08:51→21:10)
[2019-07-26 09:48] LABS: HEMATOCRIT. 41.7 % (42.0-52.0); HEMOGLOBIN. 14.3 g/dL (14.0-18.0); MEAN CORPUSCULAR HEMOGLOBIN 27.3 pg (28.0-32.0); MEAN CORPUSCULAR VOLUME 79.3 fL (80.0-94.0); RED BLOOD CELL COUNT 5.25 mill/uL (4.7-6.1); RED CELL DISTRIBUTION WIDTH 15.8 % (11.6-14.6)
[2019-07-26 09:53] LABS: CHLORIDE 103 mEq/L (98-107)
[2019-07-26 10:00] LABS: PHOSPHORUS 3.8 mg/dL (2.5-4.9)
[2019-07-26 12:00] VITALS: BP 134/79
[2019-07-26 12:06] LABS: PLATELET ESTIMATE DECREASED
[2019-07-26 12:07] LABS: MEAN PLATELET VOLUME 11.8 fl (7.4-10.4); PLATELET 114 x1000/uL (130-400)
[2019-07-26 16:00] VITALS: BP 126/96
[2019-07-26 20:00] VITALS: BP 145/98
[2019-07-27] VITALS: BP 154/109
[2019-07-27] MEDS: NAPHAZOLINE HCL/PHENIR MAL OPHTH SOLN 15ML RIGHTEYE SCH ×4 (03:39→21:36)
[2019-07-27 04:00] VITALS: BP 149/76
[2019-07-27 08:00] VITALS: BP 147/79
[2019-07-27] MEDS: FUROSEMIDE 40MG TABLET GT SCH (08:34)
[2019-07-27] MEDS: ENOXAPARIN 40MG/0.4ML SYR SUBCUT SCH (08:34)
[2019-07-27] MEDS: POTASSIUM CHLORIDE 20MEQ/PACKET GT SCH (08:34)
[2019-07-27] MEDS: AMLODIPINE 5MG TABLET PO SCH ×2 (08:34→21:33)
[2019-07-27 12:00] VITALS: BP 122/68
[2019-07-27 16:00] VITALS: BP 122/83
[2019-07-27 20:00] VITALS: BP 116/92
[2019-07-27] MEDS: ACETAMINOPHEN 325MG TABLET PO PRN (21:33)
[2019-07-28] VITALS: BP 140/95
[2019-07-28] MEDS: NAPHAZOLINE HCL/PHENIR MAL OPHTH SOLN 15ML RIGHTEYE SCH ×4 (01:33→20:31)
[2019-07-28 04:00] VITALS: BP 136/88
[2019-07-28 08:00] VITALS: BP 111/71
[2019-07-28] MEDS: POTASSIUM CHLORIDE 20MEQ/PACKET GT SCH (08:52)
[2019-07-28] MEDS: ENOXAPARIN 40MG/0.4ML SYR SUBCUT SCH (08:52)
[2019-07-28] MEDS: FUROSEMIDE 40MG TABLET GT SCH (08:52)
[2019-07-28] MEDS: AMLODIPINE 5MG TABLET PO SCH ×2 (08:53→20:30)
[2019-07-28 12:00] VITALS: BP 110/83
[2019-07-28 16:00] VITALS: BP 129/87
[2019-07-28 20:00] VITALS: BP 126/88
[2019-07-28] MEDS: ACETAMINOPHEN 325MG TABLET PO PRN (20:30)
[2019-07-29] VITALS: BP 122/86
[2019-07-29] MEDS: NAPHAZOLINE HCL/PHENIR MAL OPHTH SOLN 15ML RIGHTEYE SCH ×4 (02:27→22:39)
[2019-07-29 04:00] VITALS: BP 135/86
[2019-07-29 08:00] VITALS: BP 123/84
[2019-07-29] MEDS: AMLODIPINE 5MG TABLET PO SCH (08:53)
[2019-07-29] MEDS: FUROSEMIDE 40MG TABLET GT SCH (08:53)
[2019-07-29] MEDS: POTASSIUM CHLORIDE 20MEQ/PACKET GT SCH (08:53)
[2019-07-29] MEDS: ENOXAPARIN 40MG/0.4ML SYR SUBCUT SCH (08:54)
[2019-07-29 12:00] VITALS: BP_SYST 125; BP_DIAS 71; BP_DIAS 83
[2019-07-29] MEDS: BACLOFEN 10MG TABLET PO SCH ×2 (13:35→22:38)
[2019-07-29] MEDS: ACETAMINOPHEN 325MG TABLET PO PRN (15:38)
[2019-07-29 15:48] VITALS: BP 125/83
[2019-07-29 20:00] VITALS: BP 144/101
[2019-07-30] VITALS: BP 142/84
[2019-07-30] MEDS: AMLODIPINE 5MG TABLET PO SCH ×3 (00:14→21:52)
[2019-07-30] MEDS: NAPHAZOLINE HCL/PHENIR MAL OPHTH SOLN 15ML RIGHTEYE SCH ×4 (02:06→21:53)
[2019-07-30 04:00] VITALS: BP 137/87
[2019-07-30] MEDS: ACETAMINOPHEN 325MG TABLET PO PRN ×2 (04:43→16:45)
[2019-07-30] MEDS: BACLOFEN 10MG TABLET PO SCH ×3 (06:39→21:52)
[2019-07-30 08:00] VITALS: BP 137/88
[2019-07-30] MEDS: FUROSEMIDE 40MG TABLET GT SCH (08:53)
[2019-07-30] MEDS: POTASSIUM CHLORIDE 20MEQ/PACKET GT SCH (08:53)
[2019-07-30] MEDS: ENOXAPARIN 40MG/0.4ML SYR SUBCUT SCH (08:53)
[2019-07-30] MEDS ORDERED: DOCUSATE SODIUM 100MG CAPSULE PO SCH (10:30)
[2019-07-30] MEDS: DOCUSATE SODIUM SUGAR FREE 100MG/10ML UDC PO SCH ×2 (10:55→16:45)
[2019-07-30 12:00] VITALS: BP 124/97
[2019-07-30 16:00] VITALS: BP 131/89
[2019-07-30 20:00] VITALS: BP 145/97
[2019-07-30] MEDS: POLYETHYLENE GLYCOL 3350 (17GM) 1 DOSE PACK PO SCH (21:50)
[2019-07-31] VITALS: BP 145/94
[2019-07-31 04:00] VITALS: BP 147/86
[2019-07-31] MEDS: NAPHAZOLINE HCL/PHENIR MAL OPHTH SOLN 15ML RIGHTEYE SCH ×4 (05:49→21:38)
[2019-07-31] MEDS: BACLOFEN 10MG TABLET PO SCH ×3 (05:49→21:36)
[2019-07-31 08:00] VITALS: BP 131/83
[2019-07-31] MEDS: FUROSEMIDE 40MG TABLET GT SCH (08:35)
[2019-07-31] MEDS: ERGOCALCIFEROL 50000UNITS CAPSULE PO SCH (08:36)
[2019-07-31] MEDS: POTASSIUM CHLORIDE 20MEQ/PACKET GT SCH (08:36)
[2019-07-31] MEDS: ENOXAPARIN 40MG/0.4ML SYR SUBCUT SCH (08:36)
[2019-07-31] MEDS: AMLODIPINE 5MG TABLET PO SCH ×2 (08:36→21:35)
[2019-07-31] MEDS: DOCUSATE SODIUM SUGAR FREE 100MG/10ML UDC PO SCH ×2 (08:36→17:42)
[2019-07-31 12:00] VITALS: BP 116/85
[2019-07-31 16:00] VITALS: BP 119/82
[2019-07-31 20:00] VITALS: BP 165/98
[2019-07-31] MEDS: POLYETHYLENE GLYCOL 3350 (17GM) 1 DOSE PACK PO SCH (21:36)
[2019-07-31] MEDS: ACETAMINOPHEN 325MG TABLET PO PRN (21:36)
[2019-08-01] VITALS: BP 148/79
[2019-08-01] MEDS: NAPHAZOLINE HCL/PHENIR MAL OPHTH SOLN 15ML RIGHTEYE SCH ×4 (02:58→20:38)
[2019-08-01 04:00] VITALS: BP 166/83
[2019-08-01] MEDS: BACLOFEN 10MG TABLET PO SCH ×3 (06:07→20:37)
[2019-08-01 06:57] LABS: CHLORIDE 102 mEq/L (98-107)
[2019-08-01 07:04] LABS: HEMATOCRIT. 43.3 % (42.0-52.0); HEMOGLOBIN. 15.1 g/dL (14.0-18.0); MEAN CORPUSCULAR HEMOGLOBIN 27.8 pg (28.0-32.0); MEAN CORPUSCULAR VOLUME 79.7 fL (80.0-94.0); RED BLOOD CELL COUNT 5.43 mill/uL (4.7-6.1); RED CELL DISTRIBUTION WIDTH 15.7 % (11.6-14.6)
[2019-08-01 07:06] LABS: PHOSPHORUS 4.7 mg/dL (2.5-4.9)
[2019-08-01 08:00] VITALS: BP 127/79
[2019-08-01] MEDS: AMLODIPINE 5MG TABLET PO SCH ×2 (08:45→20:37)
[2019-08-01] MEDS: DOCUSATE SODIUM SUGAR FREE 100MG/10ML UDC PO SCH ×2 (08:45→17:30)
[2019-08-01] MEDS: ENOXAPARIN 40MG/0.4ML SYR SUBCUT SCH (08:46)
[2019-08-01 12:00] VITALS: BP 122/82
[2019-08-01 12:11] LABS: PLATELET 134 x1000/uL (130-400)
[2019-08-01 12:15] LABS: ATYPICAL LYMPHOCYTES 1; PLATELET ESTIMATE NORMAL
[2019-08-01 16:00] VITALS: BP 110/83
[2019-08-01 20:00] VITALS: BP 147/98
[2019-08-01] MEDS: POLYETHYLENE GLYCOL 3350 (17GM) 1 DOSE PACK PO SCH (20:37)
[2019-08-02] VITALS: BP 122/86
[2019-08-02] MEDS: NAPHAZOLINE HCL/PHENIR MAL OPHTH SOLN 15ML RIGHTEYE SCH ×4 (01:02→20:42)
[2019-08-02] MEDS: ACETAMINOPHEN 325MG TABLET PO PRN ×2 (01:02→18:03)
[2019-08-02 04:00] VITALS: BP 138/88
[2019-08-02] MEDS: BACLOFEN 10MG TABLET PO SCH ×3 (05:57→20:43)
[2019-08-02 08:00] VITALS: BP 120/80
[2019-08-02] MEDS: DOCUSATE SODIUM SUGAR FREE 100MG/10ML UDC PO SCH ×2 (09:44→17:56)
[2019-08-02] MEDS: AMLODIPINE 5MG TABLET PO SCH ×2 (09:45→20:43)
[2019-08-02] MEDS: ENOXAPARIN 40MG/0.4ML SYR SUBCUT SCH (09:45)
[2019-08-02 12:00] VITALS: BP 121/82
[2019-08-02 16:00] VITALS: BP 111/85
[2019-08-02 20:00] VITALS: BP 134/95
[2019-08-02] MEDS: POLYETHYLENE GLYCOL 3350 (17GM) 1 DOSE PACK PO SCH (20:42)
[2019-08-03] VITALS: BP 140/89
[2019-08-03] MEDS: NAPHAZOLINE HCL/PHENIR MAL OPHTH SOLN 15ML RIGHTEYE SCH ×3 (02:38→13:30)
[2019-08-03] MEDS: ACETAMINOPHEN 325MG TABLET PO PRN (02:49)
[2019-08-03 04:00] VITALS: BP 137/107
[2019-08-03] MEDS: BACLOFEN 10MG TABLET PO SCH ×2 (06:25→13:22)
[2019-08-03 08:00] VITALS: BP 123/86
[2019-08-03] MEDS: DOCUSATE SODIUM SUGAR FREE 100MG/10ML UDC PO SCH ×2 (09:27→16:47)
[2019-08-03] MEDS: AMLODIPINE 5MG TABLET PO SCH (09:27)
[2019-08-03] MEDS: ENOXAPARIN 40MG/0.4ML SYR SUBCUT SCH (09:28)
[2019-08-03 12:00] VITALS: BP 133/84
[2019-08-03 16:00] VITALS: BP 134/88
[2019-08-03 16:28] VITALS: BP 134/85
[2019-08-04] MEDS ORDERED: ENOXAPARIN 40MG/0.4ML SYR SUBCUT SCH (09:00)
== END 2019-08-03 17:29 | DRG 64 ==
LOC: ER 06:35 → 6WST 09:32 → EDBEDREQ 09:37 → ENRESERV 10:15 → 6EST 07-04 05:13
PROVIDERS: ADMIT Internal Medicine; ATTEND Internal Medicine
PROC: 0DH63UZ Insertion of Feeding Device into Stomach, Percutaneous Approach (ICD-10-PCS; principal; 2019-06-21)
DX: I63.511 Cerebral infarction due to unspecified occlusion or stenosis of right middle cerebral artery (principal); I21.4 Non-ST elevation (NSTEMI) myocardial infarction; G92 Toxic encephalopathy; G81.94 Hemiplegia, unspecified affecting left nondominant side; I50.22 Chronic systolic (congestive) heart failure; I42.9 Cardiomyopathy, unspecified; E87.0 Hyperosmolality and hypernatremia; I42.0 Dilated cardiomyopathy; I47.2 Ventricular tachycardia; R41.4 Neurologic neglect syndrome; R47.01 Aphasia; F14.10 Cocaine abuse, uncomplicated; E87.6 Hypokalemia; E11.9 Type 2 diabetes mellitus without complications; E87.8 Other disorders of electrolyte and fluid balance, not elsewhere classified; I11.0 Hypertensive heart disease with heart failure; K29.60 Other gastritis without bleeding; I27.20 Pulmonary hypertension, unspecified; D63.8 Anemia in other chronic diseases classified elsewhere; D69.6 Thrombocytopenia, unspecified; E55.9 Vitamin D deficiency, unspecified; I34.0 Nonrheumatic mitral (valve) insufficiency; I49.3 Ventricular premature depolarization; R13.12 Dysphagia, oropharyngeal phase; Z20.828 Contact with and (suspected) exposure to other viral communicable diseases; L53.8 Other specified erythematous conditions; R25.2 Cramp and spasm; R47.02 Dysphasia; Z78.1 Physical restraint status; Z79.02 Long term (current) use of antithrombotics/antiplatelets; Z79.82 Long term (current) use of aspirin; Z79.899 Other long term (current) drug therapy; Z82.3 Family history of stroke; Z82.49 Family history of ischemic heart disease and other diseases of the circulatory system; Z87.891 Personal history of nicotine dependence
CPT/HCPCS: 36415; 36600; 70496; 71045; 80048; 80053; 80061; 80305; 80320; 81003; 82140; 82306; 82375; 82550; 82553; 82607; 82746; 82805; 83036; 83735; 84100; 84145; 84439; 84443; 84481; 84484; 85025; 92523; 92610; 93005; 93306; 93880; 93970; 97110; 97112; 97162; 97166; 97530; 97535; 99291; C9113; J0360; J0456; J0690; J0696; J1650; J1885; J2060; J2250; J3010; J3480; J7060; G0480; U0003-CS